=== PATIENT | female | born 1935 | race Caucasian/White ===

== ENCOUNTER → 2016-08-31 | Outpatient (CLI) | payer MEDICARE ==
[2016-08-31 11:58] LABS: Anion Gap 11 mmol/L; Blood Urea Nitrogen 9 mg/dL (7-17); Carbon Dioxide 27 mmol/L (22-30); Chloride 99 mmol/L (98-107); Non-African American GFR(MDRD) >60 (>60 ml/min/1.73 sqM); Potassium 4.4 mmol/L (3.5-5.1); Sodium 137 mmol/L (137-145)
== END | disposition home or self-care (01) ==
LOC: LABWHC1 11:05
PROVIDERS: ATTEND Psychiatry & Neurology Neurology
DX: D49.6 Neoplasm of unspecified behavior of brain (principal); G50.0 Trigeminal neuralgia
CPT/HCPCS: 36415; 80051; 80183; 82565; 84520

== ENCOUNTER → 2016-09-01 | Outpatient (CLI) | payer MEDICARE ==
--- NOTE | 2016-09-01 17:10 | MR ---
MRI brain with and without contrast HISTORY: Memory loss, forgetfulness, unstable gait Multiplanar multisequence and postcontrast images through the brain following 13 cc MultiHance IV. Correlation brain CT 26 January 2013 There is no restricted diffusion. There is no hemorrhage or hydrocephalus. The corpus callosum, pitui tary, cervical medullary junction, cerebellopontine angles are normal. No abnormal enhancement follow ing contrast administration. The periventricular white matter, zi show confluent and scattered area s of hyperintensity on inversion recovery and T2-weighted sequences. There is normal appearance to th e orbits. Cortical atrophy is likely age-related. Normal vascular flow voids and enhancement. IMPRESSION: Age-related changes of atrophy and probable chronic small vessel ischemia.
== END | disposition home or self-care (01) ==
LOC: RADMRIMAIN 14:38
PROVIDERS: ATTEND Psychiatry & Neurology Neurology
DX: G50.0 Trigeminal neuralgia (principal)
CPT/HCPCS: 70553; A9577

== ENCOUNTER 2018-01-08 09:20 | Inpatient (IN) | payer MEDICARE ==
--- NOTE | 2018-01-08 12:40 | CT ---
EXAMINATION TYPE: CODE STROKE: CTA head neck DATE OF EXAM: 01/08/2018 COMPARISON: NONE HISTORY: Neurologic symptoms CONTRAST: Isovue 370/65 and 50 ml saline. Combination Contrast CTA cervical carotids and [place] CTA cervical carotids with 3-D recons truction Contrast CTA of the cervical carotids was performed 3-D reconstruction imaging obtained at a separate workstation. Right carotid system: Mild plaque is seen of the right common carotid artery. There is mild plaque a lso noted at the carotid bulb and proximal ICA. No significant diameter reduction. ECA is patent. Right vertebral artery appears unremarkable. Left carotid system: Mild plaque is seen of the left common carotid artery. There is mild plaque als o noted at the carotid bulb and proximal ICA. No significant diameter reduction. ECA is patent. Lef t vertebral artery appears unremarkable. IMPRESSION: 1. No significant diameter reduction to account for the patient's symptoms. CTA [place] with 3-D reconstruction Contrast CTA of the [place] was performed 3-D reconstruction imaging obtained at a separate workstation. Vertebrobasilar system as well as intracranial portions of the internal carotid arteries and their ma trudy tributaries are patent. I do not see evidence for sizable aneurysm or vascular malformation. Pl ease note MRI provides greater sensitivity and specificity. Visualized brain appears grossly unremar kable. IMPRESSION: 1. No significant abnormality.
--- NOTE | 2018-01-08 12:41 | CT ---
EXAMINATION TYPE: CT brain wo con DATE OF EXAM: 01/08/2018 COMPARISON: NONE HISTORY: Pain, neurologic symptoms Unenhanced CT of the brain was performed. The ventricles, basal cisterns and sulci overlying the cerebral convexities demonstrate moderate enla rgement. There is no evidence for intracranial hemorrhage or sulcal effacement. There is decreased attenuation about the periventricular white matter and deep white matter of both c erebral hemispheres, compatible with chronic small vessel ischemia. Differential diagnosis does inclu de demyelination. No mass effects are seen.No midline shift. Osseous calvarium is intact. If symptoms persist consider MRI. IMPRESSION: 1. Age related atrophic and chronic small vessel ischemic change without acute intracranial process s een at this time.
--- NOTE | 2018-01-08 12:43 | XR ---
EXAMINATION TYPE: XR chest 2V DATE OF EXAM: 01/08/2018 CLINICAL HISTORY: Numbness and tingling and weakness left chest and body. TECHNIQUE: Frontal and lateral views of the chest are obtained. COMPARISON: Chest x-ray October 22, 2014 FINDINGS: Diminished inspiration is seen on current study. There is chronic parenchymal change withou t suspicious new focal air space opacity, pleural effusion, or pneumothorax seen. The cardiac silhou ette size is mildly enlarged on current study. Some multilevel spurring in thoracic spine is redemons trated. IMPRESSION: Chronic changes and mild cardiomegaly with diminished inspiration but no suspicious acute pulmonary process.
[2018-01-08 13:41] LABS: Appearance,Urine Clear (Clear); Bilirubin,Urine Negative (Negative); Blood,Urine Negative (Negative); Color,Urine Colorless; Glucose,Urine (UA) Negative (Negative); Ketones,Urine Negative (Negative); Leukocyte Esterase,Urine Negative (Negative); Nitrite,Urine Negative (Negative); Protein,Urine Negative (Negative); Specific Gravity,Urine 1.005 (1.001-1.035); Urobilinogen,Urine <2.0 mg/dL (<2.0)
[2018-01-08 13:45] LABS: Partial Thromboplastin Time 22.9 sec (22.0-30.0); Prothrombin Time 9.6 sec (9.0-12.0)
[2018-01-08 13:58] LABS: Basophils % (A) 1 %; Eosinophils # (A) 0.1 k/uL (0-0.7); Eosinophils % (A) 2 %; HCT 39.3 % (34.0-46.0); HGB 13.2 gm/dL (11.4-16.0); Lymphocytes # (A) 0.9 k/uL (1.0-4.8); Lymphocytes % (A) 15 %; MCH 29.1 pg (25.0-35.0); MCHC 33.5 g/dL (31.0-37.0); MCV 86.6 fL (80.0-100.0); Mean Platelet Volume 6.5; Monocytes # (A) 0.3 k/uL (0-1.0); Monocytes % (A) 5 %; Neutrophils # (A) 4.5 k/uL (1.3-7.7); Neutrophils % (A) 76 %; Platelet Count 279 k/uL (150-450); RBC 4.54 m/uL (3.80-5.40); RDW 13.2 % (11.5-15.5); WBC 5.9 k/uL (3.8-10.6)
[2018-01-08 15:03] LABS: ALT 28 U/L (9-52); AST 20 U/L (14-36); Albumin 4.3 g/dL (3.5-5.0); Alkaline Phosphatase 95 U/L (38-126); Anion Gap 13 mmol/L; Blood Urea Nitrogen 8 mg/dL (7-17); Calcium 9.3 mg/dL (8.4-10.2); Carbon Dioxide 24 mmol/L (22-30); Chloride 101 mmol/L (98-107); Glucose 97 mg/dL (74-99); Magnesium 2.1 mg/dL (1.6-2.3); Potassium 4.2 mmol/L (3.5-5.1); Sodium 138 mmol/L (137-145); Total Bilirubin 0.3 mg/dL (0.2-1.3); Total Protein 7.7 g/dL (6.3-8.2)
[2018-01-08 15:07] LABS: Creatine Kinase 51 U/L (30-135); Creatine Kinase MB 0.5 ng/mL (0.0-2.4); Troponin I <0.012 ng/mL (0.000-0.034)
[2018-01-08] MEDS ORDERED: MECLIZINE 25 MG TAB PO PRN (17:03)
[2018-01-08] MEDS ORDERED: DOCUSATE 100 MG CAP PO PRN (17:09)
[2018-01-08] MEDS: ASPIRIN 81 MG PO SCH (17:49)
[2018-01-08] MEDS: ACETAMINOPHEN TAB 325 MG TAB PO PRN (17:49)
[2018-01-08] MEDS: PARoxetine 20 MG TAB PO SCH (17:49)
[2018-01-08] MEDS: amLODIPine 5 MG TAB PO SCH (17:50)
[2018-01-08] MEDS: OXcarbazepine 300 MG TAB PO SCH ×2 (17:50→21:38)
[2018-01-08] MEDS ORDERED: ONDANSETRON 4 MG/2 ML VIAL IVP PRN (18:40)
[2018-01-08] MEDS ORDERED: MELATONIN 3 MG TABLET PO PRN (21:14)
[2018-01-08] MEDS ORDERED: NALOXONE 0.4 MG/ML 1 ML VIAL IV PRN (21:14)
[2018-01-08] MEDS ORDERED: ALPRAZolam 0.25 MG TAB PO PRN (21:14)
[2018-01-08] MEDS: MEMANTINE 10 MG TAB PO SCH (21:38)
--- NOTE | 2018-01-08 22:14 | HP ---
HISTORY AND PHYSICAL CHIEF COMPLAINTS: Weakness of the left side as well as fall. HISTORY OF PRESENT ILLNESS: This 82-year-old with a past medical history of asthma, GERD, hypertension, hyperlipidemia, history of thyroid, trigeminal neuralgia being followed by Dr. Ema Schneider in the outpatient setting apparently was living with the . That night the patient to the bathroom and the patient had weakness of the left side and the patient fell. Patient taken to [facility]. CT scan of the brain and as well as CTA did not show acute abnormality. The weakness was also improving. Currently there is only minimal weakness of the left lower limb. There is no history of fever, rigors. No history of headache, loss of consciousness or seizures. PAST MEDICAL HISTORY: Asthma, GERD, hypertension, hyperlipidemia, history of hypothyroid, trigeminal neuralgia with radiofrequency ablation. MEDICATIONS: 1. Norvasc 5 mg p.o. daily. 2. Paxil 20 mg b.i.d. 3. Tirosint 75 mcg p.o. daily. 4. Namenda 10 mg p.o. b.i.d. 5. Antivert 25 mg b.i.d. 6. Citrucel 500 mg p.o. daily. 7. Aspirin 81 mg p.o. daily. 8. Biotin 5 mg p.o. daily. 9. Oxtellar XR 10 mg p.o. daily. ALLERGIES: PENICILLIN AND SULFA. FAMILY HISTORY: History of cancer, MS in the family. SOCIAL HISTORY: There is previous history of smoking. No history of current smoking or alcohol intake. REVIEW OF SYSTEMS: ENT: Diminished vision. Diminished hearing. Cardiovascular: No angina. No palpitations. RESPIRATORY: As mentioned earlier. GI: As mentioned. : No dysuria. NERVOUS SYSTEM: No numbness or weakness. ALLERGY/IMMUNOLOGY: No asthma or hayfever. MUSCULOSKELETAL: As mentioned earlier. HEMATOLOGY/ONCOLOGY: No history of anemia. ENDOCRINE: No history of diabetes or hypothyroidism. CONSTITUTIONAL: As mentioned earlier. DERMATOLOGY: Negative. RHEUMATOLOGY: Negative. PSYCHIATRY: As mentioned earlier. PHYSICAL EXAMINATION: Alert and oriented times three. Pulse is 82, blood pressure 174/60, respiratory rate 16, temperature normal. Pulse ox 98% on room air. HEENT: Conjunctivae normal. Oral mucosa moist. NECK is no jugular venous distention. No carotid bruit. No lymph node enlargement. CARDIOVASCULAR: S1, S2 muffled. RESPIRATORY: Breath sounds diminished in the bases. A few scattered rhonchi. No crackles. ABDOMEN: Soft, nontender. No mass palpable. Legs no edema and no swelling. CENTRAL NERVOUS SYSTEM: Facial deviation on the left side and minimal weakness, left, more weakness on the left lower limb also grade 3. Upper limb is grade 4+. No sensory abnormalities. Gait not tested. LYMPHATICS: No lymph nodes palpable in the neck, axillae or groin. JOINTS: No active deforming arthropathy. LAB STUDIES: CBC, BMP within normal limits. INR is normal. CT scan noted. ASSESSMENT: 1. Acute weakness of the left side possibly right hemispheric cerebrovascular accident and acute stroke. 2. Asthma. 3. History of gastroesophageal reflux disease. 4. Hypertension. 5. Hyperlipidemia. 6. History of trigeminal neurology. 7. History of bowel obstruction. 8. History of breast surgery. 9. History of exploratory laparotomy. 10.History of anxiety. RECOMMENDATIONS AND DISCUSSION: In this 82-year-old woman who presented with multiple complex medical issues, we will monitor the patient closely, continue the current medications, management and symptomatic treatment. We will initiate neuro checks. Otherwise, at this time, I will recommend antiplatelet agents. DVT prophylaxis. Resume the home medications. Guarded prognosis because of multiple complex medical problems. Further recommendations to follow. A copy forwarded to Dr. Ema Schneider who is the primary care physician. MMJOHN / GUERLINE: [id number] /
[2018-01-08] MEDS: SODIUM CHLORIDE 0.9% 1,000 ML IV SCH (23:10)
[2018-01-09 03:31] LABS: Glucose,Whole Blood 107 mg/dL (75-99)
[2018-01-09 06:23] LABS: Basophils % (A) 0 %; Eosinophils # (A) 0.1 k/uL (0-0.7); Eosinophils % (A) 2 %; HCT 38.1 % (34.0-46.0); HGB 12.4 gm/dL (11.4-16.0); Lymphocytes # (A) 1.5 k/uL (1.0-4.8); Lymphocytes % (A) 23 %; MCH 28.2 pg (25.0-35.0); MCHC 32.6 g/dL (31.0-37.0); MCV 86.7 fL (80.0-100.0); Mean Platelet Volume 6.5; Monocytes # (A) 0.5 k/uL (0-1.0); Monocytes % (A) 7 %; Neutrophils # (A) 4.2 k/uL (1.3-7.7); Neutrophils % (A) 65 %; Platelet Count 286 k/uL (150-450); RBC 4.39 m/uL (3.80-5.40); RDW 13.6 % (11.5-15.5); WBC 6.5 k/uL (3.8-10.6)
[2018-01-09] MEDS: PANTOPRAZOLE 40 MG TABLET PO SCH (06:35)
[2018-01-09] MEDS: LEVOTHYROXINE 75 MCG TAB PO SCH (06:35)
[2018-01-09 06:38] LABS: Anion Gap 11 mmol/L; Blood Urea Nitrogen 8 mg/dL (7-17); Calcium 9.4 mg/dL (8.4-10.2); Carbon Dioxide 25 mmol/L (22-30); Chloride 99 mmol/L (98-107); Glucose 89 mg/dL (74-99); Potassium 3.8 mmol/L (3.5-5.1); Sodium 135 mmol/L (137-145)
[2018-01-09] MEDS: traMADol 50 MG TAB PO PRN ×2 (06:43→15:20)
[2018-01-09] MEDS: amLODIPine 5 MG TAB PO SCH (08:59)
[2018-01-09] MEDS: ASPIRIN 81 MG PO SCH (08:59)
[2018-01-09] MEDS: HEPARIN SODIUM,PORCINE 5,000 UNIT/ML 1 ML VIAL SQ SCH ×2 (08:59→20:18)
[2018-01-09] MEDS: PARoxetine 20 MG TAB PO SCH (09:00)
[2018-01-09] MEDS: MEMANTINE 10 MG TAB PO SCH ×2 (09:00→20:17)
[2018-01-09] MEDS: OXcarbazepine 300 MG TAB PO SCH ×2 (09:00→20:17)
[2018-01-09] MEDS ORDERED: LEVOTHYROXINE SODIUM 75 MCG PO SCH (09:00)
[2018-01-09] MEDS: BIOTIN 5 MG PO SCH (09:05)
[2018-01-09] MEDS: PSYLLIUM HUSK 100% 6 GM PACKET PO SCH (09:06)
--- NOTE | 2018-01-09 12:24 | P.PN ---
Subjective 82-year-old pleasant female admitted for weakness in the left side of the body with very minimal facial involvement. Patient appears to have cerebrovascular accident involving the right internal capsule. Patient will need an MRI, neurology will evaluate the patient and let them decide about the MRI. Patient uses aspirin at home may need to be discharged on Plavix. I'm ordering an echocardiogram, we'll also consult Dr. Mcintosh for possibility of placement to inpatient rehabilitation. Patient will be started on statin as well lighted panel will be obtained for tomorrow. Patient still has weakness and strength of the road and 3/5 in the left arm and around 2-3/5 in the left leg with tingling and numbness in both left arm and left leg. Which as per the patient is an improvement since that hospitalization Constitutional: Denied any fatigue denied any fever. Cardio vascular: denied any chest pain, palpitations Gastrointestinal denied any nausea vomiting Pulmonary: Denied any shortness of breath cough Neurologic as mentioned above Objective - Vital Signs Vital signs: Vital Signs Temp 97.1 F L 01/09/18 08:00 Pulse 88 01/09/18 08:00 Resp 16 01/09/18 08:00 BP 154/69 01/09/18 08:00 Pulse Ox 93 L 01/09/18 08:00 Intake & Output 01/08/18 01/09/18 01/09/18 18:59 06:59 18:59 Intake Total 160 240 Output Total 500 Balance -340 240 Weight 70 kg Intake: Intake, IV Titration 160 Amount Sodium Chloride 0.9% 1, 160 000 ml @ 20 mls/hr IV . Q24H [facility] Rx#:[id number] Oral 240 Output: Urine 500 Other: Voiding Method Bedpan # Voids 1 - Exam PHYSICAL EXAMINATION: GENERAL: The patient is alert and oriented x3, not in any acute distress. Well developed, well nourished. HEENT: Pupils are round and equally reacting to light. EOMI. No scleral icterus. No conjunctival pallor. Normocephalic, atraumatic. No pharyngeal erythema. No thyromegaly. CARDIOVASCULAR: S1 and S2 present. No murmurs, rubs, or gallops. PULMONARY: Chest is clear to auscultation, no wheezing or crackles. ABDOMEN: Soft, nontender, nondistended, normoactive bowel sounds. No palpable organomegaly. MUSCULOSKELETAL: No joint swelling or deformity. EXTREMITIES: No cyanosis, clubbing, or pedal edema. NEUROLOGICAL: Focal weakness as described in the interval history SKIN: No rashes. - Labs CBC & Chem 7: 01/09/18 05:39 01/09/18 05:39 Labs: Abnormal Lab Results - Last 24 Hours (Table) 01/08/18 01/08/18 01/09/18 Range/Units 09:34 09:40 05:39 Lymphocytes # 0.9 L (1.0-4.8) k/uL Sodium 135 L (137-145) mmol/L Creatinine 0.50 L (0.52-1.04) mg/dL POC Glucose (mg/dL) 107 H (75-99) mg/dL Assessment and Plan Plan: -Possible cerebral vascular accident involving the right cerebral hemisphere most probably in the genital of the right [id number], which is middle cerebral artery territory. Further management as mentioned in 12 history -Asthma without any acute exacerbation -Hypertension -Hyperlipidemia -Anxiety disorder For above-mentioned chronic medical problems patient will be resumed and continued on appropriate home medications.
--- NOTE | 2018-01-09 12:37 | ECHOF ---
Referral Reason:CVA MEASUREMENTS -------- HEIGHT: 147.3 cm WEIGHT: 69.9 kg BP: 154/69 RVIDd: 2.4 cm (< 3.3) IVSd: 1.0 cm (0.6 - 1.1) LVIDd: 3.8 cm (3.9 - 5.3) LVPWd: 1.1 cm (0.6 - 1.1) IVSs: 1.5 cm LVIDs: 2.8 cm LVPWs: 1.5 cm LAESV Index (A-L): 30.51 ml/m Ao Diam: 3.1 cm (2.0 - 3.7) AV Cusp: 1.9 cm (1.5 - 2.6) LA Diam: 3.3 cm (2.7 - 3.8) MV E Alvaro: 0.75 m/s MV DecT: 311 ms MV A Alvaro: 1.26 m/s MV E/A Ratio: 0.60 AR PHT: 488 ms RAP: 5.00 mmHg RVSP: 31.03 mmHg FINDINGS -------- Sinus rhythm. This was a technically adequate study. The left ventricular size is normal. Left ventricular wall thickness is normal. Overall left vent ricular systolic function is normal with, an EF between 55 - 60 %. The right ventricle is normal in size and function. LA is midly dilated 29-33ml/m2. The right atrium is normal in size. Aortic valve is trileaflet and is mildly thickened. There is [id number] aortic regurgitation. There is no evidence of aortic stenosis. The mitral valve leaflets are mildly thickened. Mild mitral annular calcification present. Mild m itral regurgitation is present. Trace tricuspid regurgitation present. Right ventricular systolic pressure is normal at < 35 mmHg. There is no evidence of pulmonary hypertension. Trace/mild (physiologic) pulmonic regurgitation. The aortic root size is normal. Normal inferior vena cava with normal inspiratory collapse consistent with estimated right atrial pre ssure of 5 mmHg. There is no pericardial effusion. CONCLUSIONS -------- 1. Sinus rhythm. 2. This was a technically adequate study. 3. The left ventricular size is normal. 4. Left ventricular wall thickness is normal. 5. Overall left ventricular systolic function is normal with, an EF between 55 - 60 %. 6. LA is midly dilated 29-33ml/m2. 7. Aortic valve is trileaflet and is mildly thickened. 8. There is [id number]-[id number] aortic regurgitation. 9. The mitral valve leaflets are mildly thickened. 10. Mild mitral annular calcification present. 11. Mild mitral regurgitation is present. 12. Trace tricuspid regurgitation present. 13. Right ventricular systolic pressure is normal at < 35 mmHg. 14. There is no evidence of pulmonary hypertension. 15. Trace/mild (physiologic) pulmonic regurgitation. 16. The aortic root size is normal. 17. There is no pericardial effusion. [employer] OPERATOR: Logan Hubbard RDCS
--- NOTE | 2018-01-09 16:45 | P.CONS ---
History of Present Illness - Chief Complaint Gait disturbance, left hemiparesthesias - History of Present Illness I had the opportunity to see patient for inpatient rehab consultation with regard to gait disturbance. He was admitted to [facility] overnight with acute onset left-sided weakness and left facial numbness. Chest x-ray chronic change and mild cardiomegaly. Cardiac echo with mild to moderate aortic and mild mitral regurg. Angio CT negative. Head CT with degenerative change. PT reports moderate assistance for bed mobility minimal assistance of 2 person for transfers and standing. OT reports moderate assistance for upper dressing and maximal assistance for lower dressing and bathing. Total assistance for toileting. Moderate assistance to person for functional mobility. I have added speech therapy. Previous functional history as elicited from patient: 82-year-old right-handed white female who is and lives in one floor home with . Describes independent with cooking, laundry, standing shower. Uses a standard cane around the house in a 4 wheeled walker outside. Does not drive and never did. Dr. Wyatt is regular doctor. Doesn't smoke or drink. Family history cardiac disease in father and mother with diabetes and cancer. Review of Systems Review of systems: ENT: Denies sneezes or discharge. Eyes: Denies discharge or photophobia. Cardiac: Denies chest pain or palpitation. Pulmonary: Denies cough or shortness of breath. Breast: Denies discharge or lumps. Gastrointestinal: Denies nausea, emesis, constipation, diarrhea. Genitourinary: Denies discharge or frequency. Musculoskeletal: Denies muscle or bone aches. Neurologic: Left arm weakness more so than leg. Left facial numbness. Endocrine: Denies shakes or sweats. Oncology: Denies cancers. Dermatologic: Denies rash, itching, pruritus. ALLERGY/immunology: Denies sneezes, rashes. Past Medical History Past Medical History: Asthma, Eye Disorder, GERD/Reflux, Hyperlipidemia, Hypertension, Neurologic Disorder, Thyroid Disorder Additional Past Medical History / Comment(s): TRIGEMINAL NEURALGIA, MIGRAINES, VERTIGO, PAST SMALL BOWEL OBSTRUCTIONS, DIVERTICULAR DISEASE, HYPOTHYROID, BILATERAL EYE ASTIGMATISM, UTIS, ANEMIA, SINUS PROBLEMS History of Any Multi-Drug Resistant Organisms: None Reported Past Surgical History: Bowel Resection, Breast Surgery, Hysterectomy, Tubal Ligation Additional Past Surgical History / Comment(s): EXPLORATORY LAP/LYSIS OF ADHESIONS-2 BOWEL SURGERIES, COLONOSCOPY, BILATERAL CATARACT REMOVAL/LENS IMPLANTS, BRAIN-GAMMA RAY KNIFE SURGERY AT [facility] FOR TRIGEMINAL NEURALGIA, SOFIE BENIGN BREAST BX Past Anesthesia/Blood Transfusion Reactions: Motion Sickness Additional Past Anesthesia/Blood Transfusion Reaction / Comm: HX OF VERTIGO. PT HAS RECEIVED BLOOD INTHE PAST WITHOUT REACTION. Smoking Status: Former smoker - Past Family History Son(s) Family Medical History: Cancer, Neurologic Disorder Additional Family Medical History / Comment(s): ms Father Family Medical History: Hypertension, Myocardial Infarction ([place]) Additional Family Medical History / Comment(s): enlarged heart Mother Family Medical History: Diabetes Mellitus Additional Family Medical History / Comment(s): MOTHER LIVED TO BE 98YRS OLD. Sister(s) Family Medical History: CVA/TIA Brother(s) Additional Family Medical History / Comment(s): glaucoma Medications and Allergies Home Medications Medication Instructions Recorded Confirmed Type Aspirin 81 mg PO DAILY 01/08/18 01/08/18 History Biotin 5 mg PO DAILY 01/08/18 01/08/18 History Citrucel Tab 500 mg PO DAILY 01/08/18 01/08/18 History Levothyroxine Sodium [Tirosint] 75 mcg PO DAILY 01/08/18 01/08/18 History Meclizine [Antivert] 25 mg PO DAILY 01/08/18 01/08/18 History Memantine [Namenda] 10 mg PO BID 01/08/18 01/08/18 History OXcarbazepine [Oxtellar Xr] 300 mg PO DAILY 01/08/18 01/08/18 History PARoxetine [Paxil] 20 mg PO DAILY 01/08/18 01/08/18 History amLODIPine [Norvasc] 5 mg PO DAILY 01/08/18 01/08/18 History Allergies Allergy/AdvReac Type Severity Reaction Status Date / Time Penicillins Allergy Rash/Hives Verified 06/21/16 12:03 Sulfa (Sulfonamide Allergy Itching Verified 06/21/16 12:03 Antibiotics) Physical Exam Vitals: Vital Signs Temp Pulse Pulse Resp BP BP Pulse Ox 01/09/18 08:00 97.1 F L 88 16 154/69 93 L 01/09/18 03:46 85 16 01/09/18 03:45 98.0 F 85 16 174/77 99 01/09/18 00:00 97.9 F 82 16 154/78 97 01/08/18 21:30 97.6 F 82 18 161/86 94 L 01/08/18 20:45 82 16 174/67 96 Intake and Output 01/09/18 01/09/18 01/09/18 06:59 14:59 22:59 Intake Total 160 358 Output Total 200 300 Balance -40 58 Intake: Intake, IV Titration 160 Amount Sodium Chloride 0.9% 1, 160 000 ml @ 20 mls/hr IV . Q24H [facility] Rx#:[id number] Oral 358 Output: Urine 200 300 Other: Voiding Method Bedpan # Voids 1 1 # Bowel Movements 0 Weight 70 kg Skin: Atrophic, intact. General: Medium build and comfortable appearance. Head: Normocephalic, atraumatic. Eyes: Symmetric. Pupils equal round. Ears: Symmetric. Hearing within normal limits. Mouth: Clear. Neck: Supple. Carotid without bruit. Cardiac: Regular rate and rhythm. Lungs: Clear anteriorly and posteriorly. Abdomen: Soft active nontender. Extremities: Normal tone. Neurological: Mental status: Alert, cooperative, pleasant. Cranial nerves: Symmetric facial tone and trapezius. Motor: Normal strength and isolation right side. Left leg moves with elements of isolation throughout. Left arm in flexion synergy. Sensation: Intact throughout. DTRs: Symmetric and equal throughout. Mobility: Sits with assistance. Results CBC & Chem 7: 01/09/18 05:39 01/09/18 05:39 Labs: Abnormal Lab Results - Last 24 Hours (Table) 01/08/18 01/09/18 Range/Units 09:34 05:39 Sodium 135 L (137-145) mmol/L Creatinine 0.50 L (0.52-1.04) mg/dL POC Glucose (mg/dL) 107 H (75-99) mg/dL Chest x-ray: report reviewed (Chronic change and mild cardiomegaly.) CT Scan - head: report reviewed (Age related change only. Angio CT negative.) Assessment and Plan (1) CVA (cerebral vascular accident) Current Visit: Yes Status: Acute Code(s): I63.9 - CEREBRAL INFARCTION, UNSPECIFIED SNOMED Code(s): 673763275 Plan: Impression: 1. Gait disturbance. 2. Right sided cerebral stroke with result in left hemiparesthesias. 3. Hypertension. 4. Dyslipidemia. 5. Asthma. 6. Thyroid disorder. Comments and plan: At this time PT and OT are ongoing and safety concerns noted. I have added speech therapy. Note patient just admitted. I discussed possible inpatient rehab with patient and multiple family members including . Seem agreeable, if necessary. Have discussed rehab unit currently full would anticipate female beds by Saturday.
--- NOTE | 2018-01-09 19:07 | CONS ---
CONSULTATION DATE OF CONSULTATION: 01/09/2018 CHIEF COMPLAINT: Stroke. HISTORY OF PRESENT ILLNESS: Mrs. Sanchez is a pleasant 82-year-old female who is being evaluated by the neurology service per the request of Dr. Richardson for a stroke. The patient was brought into [facility] Emergency Room after she had a sudden onset of left-sided weakness and some slurred speech. The patient states that she remembers being unable to move her left leg or left arm. Her family also noticed facial drooping on the left side. In the emergency room, a CT scan of the brain was done which showed generalized atrophy and small-vessel ischemic changes. A CT angiogram of the brain and neck were done which were normal. Her CBC, comprehensive metabolic profile, urinalysis and cardiac enzymes were reviewed and were all normal. At the time of my evaluation, she is lying in her bed and appears to be in no acute distress. She reports some improvements in her symptoms but denies resolution. She states that she can now lift her left lower extremity off the bed and is able to slightly move her left arm. She could not do this when she first arrived. She was started on aspirin on this admission. She states that she does take aspirin at home but sometimes forgets to take it. She denies any swallowing difficulties. PAST MEDICAL HISTORY: 1. Asthma. 2. Gastroesophageal reflux disease. 3. Hypertension. 4. Dyslipidemia. 5. Hypothyroidism. 6. Trigeminal neuralgia. SOCIAL HISTORY: The patient is a former smoker. She denies any alcohol or drug use. FAMILY HISTORY: Positive for cancer and multiple sclerosis. HOME MEDICATIONS: Reviewed in the chart. ALLERGIES: PENICILLIN and SULFA DRUGS. REVIEW OF SYSTEMS: CONSTITUTIONAL: Negative. EYES: Negative. ENT: Positive for chronic diminished hearing. CARDIOVASCULAR: Negative. RESPIRATORY: Positive for occasional shortness of breath. NEUROLOGICAL: As mentioned above. GASTROINTESTINAL: Positive for occasional heartburn. GENITOURINARY: Negative. PSYCHIATRIC: Negative. ENDOCRINE: Positive for hypothyroidism. MUSCULOSKELETAL: Positive for occasional joint pain. DERMATOLOGICAL: Negative. PHYSICAL EXAMINATION: Vital signs show a temperature of 97.1, pulse 88, respirations 16, blood pressure 154/69. GENERAL APPEARANCE: The patient is a well-developed, elderly female who appears to be in no acute distress. HEENT: Normocephalic, atraumatic. Mild left facial drooping is seen. Extraocular muscles are intact. NECK: Supple with no masses felt. CARDIOVASCULAR: Regular rate and rhythm. ABDOMEN: Nontender, nondistended. Extremities showed no edema or clubbing. NEUROLOGICAL EXAMINATION: The patient is awake and oriented x3. Speech is slightly dysarthric. Language testing showed slightly diminished naming, but her comprehension, repetition and fluency are normal. Strength is 4/5 in the left lower extremity, 2+/5 in the left upper extremity, and 5/5 on the right side. Sensory exam was normal to light touch in all 4 extremities. Cranial nerve testing showed mild left facial drooping. Significant dysdiadochokinesia is seen on the left compared to the right. IMPRESSION: 1. Acute ischemic stroke, right middle cerebral artery distribution. 2. Left hemiparesis. 3. Mild dysarthria. 4. Hypertension. RECOMMENDATION: The patient does appear to have suffered an acute ischemic stroke, as mentioned above. The patient was on aspirin at home, although she reports that she has not been extremely compliant with taking that daily, as she sometimes forgets. I will start her on Plavix 75 mg daily and will discontinue aspirin. I will order an MRI of the brain along with a fasting lipid panel, EEG and serum homocystine level. Her CT angiogram of the neck showed no evidence of any significant blockage or stenosis. Physical Therapy, Occupational Therapy and Speech Therapy have been consulted. Continue Protonix for GI prophylaxis and heparin for DVT prophylaxis. The patient will need inpatient rehab after discharge. Continue neuro checks and IV hydration. I will continue to follow with you. Further recommendations to follow. Thank you for allowing me to participate in the care of your patient. If you have any questions, please feel free to contact me. MMODL / IJN: [id number] /
[2018-01-09] MEDS: ATORVASTATIN 40 MG TAB PO SCH (20:18)
[2018-01-09] MEDS: CLOPIDOGREL 75 MG TAB PO SCH (20:18)
[2018-01-09] MEDS: SODIUM CHLORIDE 0.9% 1,000 ML IV SCH (20:28)
--- NOTE | 2018-01-09 21:07 | MR ---
EXAMINATION TYPE: MR brain wo con DATE OF EXAM: 01/09/2018 COMPARISON: CT brain from yesterday. MRI brain from September 01, 2016. HISTORY: CVA per order. Admitted for acute onset neuro deficits or trouble speaking yesterday. TECHNIQUE: Multiplanar, multisequence imaging of the brain and brainstem is performed without IV cont rast. FINDINGS: Diffusion weighted images demonstrate area measuring roughly 13 x 12 mm posterior right marks radiat a near frontoparietal junction adjacent to right lateral ventricle axial image 160 series 305 with in creased signal on diffusion-weighted images and diminished signal on ADC mapping that shows T1 hypoin tensity and T2 hyperintensity new from prior MRI consistent with area of evolving acute infarct that was isodense on CT one day earlier. There is no worrisome extra-axial fluid collection. There is background mild diffuse ventricular and sulcal prominence. There are focal and confluent areas of T2 hyperintensity seen throughout the deep and periventricular white matter including at level of zi. Lesions are nonspecific in appearance an d distribution, but most likely on basis of product of chronic small vessel ischemic change in patien t of this age. Midline structures demonstrate normal morphology. The craniocervical junction appears within normal limits. Normal vascular flow voids are present. The visualized sinuses are clear and the globes are i ntact. IMPRESSION: 1. Area of evolving acute infarct posterior right marks radiata near frontoparietal junction as deta iled above. 2. There is background mild diffuse cerebral atrophy and moderate to severe chronic small vessel isch emic change redemonstrated.
[2018-01-10] MEDS: traMADol 50 MG TAB PO PRN (03:58)
[2018-01-10 06:56] LABS: Basophils % (A) 0 %; Eosinophils # (A) 0.2 k/uL (0-0.7); Eosinophils % (A) 3 %; HCT 38.9 % (34.0-46.0); HGB 12.9 gm/dL (11.4-16.0); Lymphocytes # (A) 1.2 k/uL (1.0-4.8); Lymphocytes % (A) 19 %; MCHC 33.1 g/dL (31.0-37.0); MCV 87.6 fL (80.0-100.0); Mean Platelet Volume 6.4; Monocytes # (A) 0.4 k/uL (0-1.0); Monocytes % (A) 7 %; Neutrophils # (A) 4.6 k/uL (1.3-7.7); Neutrophils % (A) 70 %; Platelet Count 266 k/uL (150-450); RBC 4.44 m/uL (3.80-5.40); RDW 13.7 % (11.5-15.5); WBC 6.5 k/uL (3.8-10.6)
[2018-01-10] MEDS: PANTOPRAZOLE 40 MG TABLET PO SCH (06:56)
[2018-01-10] MEDS: LEVOTHYROXINE 75 MCG TAB PO SCH (06:56)
[2018-01-10 07:11] LABS: Anion Gap 11 mmol/L; Blood Urea Nitrogen 10 mg/dL (7-17); Calcium 9.3 mg/dL (8.4-10.2); Carbon Dioxide 28 mmol/L (22-30); Chloride 94 mmol/L (98-107); Cholesterol 179 mg/dL (<200); Glucose 99 mg/dL (74-99); HDL Cholesterol 48 mg/dL (40-60); LDL Cholesterol,Calculated 100 mg/dL (0-99); Potassium 4.2 mmol/L (3.5-5.1); Sodium 133 mmol/L (137-145); Triglycerides 154 mg/dL (<150)
[2018-01-10] MEDS: CLOPIDOGREL 75 MG TAB PO SCH (10:41)
[2018-01-10] MEDS: HEPARIN SODIUM,PORCINE 5,000 UNIT/ML 1 ML VIAL SQ SCH ×2 (10:41→21:03)
[2018-01-10] MEDS: amLODIPine 5 MG TAB PO SCH (10:41)
[2018-01-10] MEDS: OXcarbazepine 300 MG TAB PO SCH ×2 (10:41→21:03)
[2018-01-10] MEDS: PARoxetine 20 MG TAB PO SCH (10:41)
[2018-01-10] MEDS: MEMANTINE 10 MG TAB PO SCH ×2 (10:41→21:03)
[2018-01-10] MEDS: PSYLLIUM HUSK 100% 6 GM PACKET PO SCH (10:46)
--- NOTE | 2018-01-10 11:33 | EEG ---
ELECTROENCEPHALOGRAM REPORT DATE OF SERVICE: 01/10/2018 REASON FOR TESTING: Stroke. DESCRIPTION OF THE PROCEDURE: This EEG was performed using a 21 channel digital electroencephalograph, following international 10-20 system. DESCRIPTION OF THE RECORDING: From the beginning of the tracing, with patient's eyes closed, the background rhythm was mostly consisting of 8 Hz alpha frequency in the posterior occipital leads. No obvious asymmetry is seen. Frequent lead artifacts and muscle artifacts are seen. Photic stimulation was performed with a minimal driving response seen. No pathological waves were elicited. More artifacts are noticed in the left frontotemporal leads. Hyperventilation was not performed. Later in the tracing, the patient does reach stage II of sleep, and occasional sleep spindles are seen. No epileptiform discharges were noticed. Her EKG lead showed a regular rate and rhythm. INTERPRETATION: This asleep and awake EEG can be considered within normal limits. There was no asymmetry seen. No epileptiform discharges were noticed. The absence of epileptiform discharges does not rule out the diagnosis of epilepsy; therefore clinical correlation is recommended. MMJOHN / IJN: [id number] /
--- NOTE | 2018-01-10 12:37 | P.PN ---
Subjective 82-year-old pleasant female admitted for weakness in the left side of the body with very minimal facial involvement. Patient appears to have cerebrovascular accident involving the right internal capsule. Patient will need an MRI, neurology will evaluate the patient and let them decide about the MRI. Patient uses aspirin at home may need to be discharged on Plavix. I'm ordering an echocardiogram, we'll also consult Dr. Mcintosh for possibility of placement to inpatient rehabilitation. Patient will be started on statin as well lighted panel will be obtained for tomorrow. Patient still has weakness and strength of the road and 3/5 in the left arm and around 2-3/5 in the left leg with tingling and numbness in both left arm and left leg. Which as per the patient is an improvement since that hospitalization 01/10/2018 Patient does have improvement in her left time weakness a little bit and had a left arm strength is around 3-4 /5 and left leg weakness remains the same. Patient was a valid by neurology, MRI was obtained which showed acute evaluating infarct in the posterior right coronary radiate the in the frontoparietal junction which explains his symptoms of weakness. All the workup including echocardiogram were done which were negative. Patient was switched to Plavix which will be continued. Patient is accepted to go to inpatient rehabilitation at [facility] but patient is awaiting for beds Constitutional: Denied any fatigue denied any fever. Cardio vascular: denied any chest pain, palpitations Gastrointestinal denied any nausea vomiting Pulmonary: Denied any shortness of breath cough Neurologic as mentioned above Objective - Vital Signs Vital signs: Vital Signs Temp 97.0 F L 01/10/18 10:58 Pulse 77 01/10/18 11:00 Resp 16 01/10/18 11:00 BP 155/81 01/10/18 10:58 Pulse Ox 97 01/10/18 10:58 Intake & Output 01/09/18 01/10/18 01/10/18 18:59 06:59 18:59 Intake Total 478 10 200 Output Total 500 200 Balance -22 -190 200 Weight 65.5 kg Intake: IV 10 Invasive Line 1 10 Oral 478 200 Output: Urine 500 200 Other: Voiding Method Bedpan Bedpan # Voids 1 1 # Bowel Movements 0 - Exam PHYSICAL EXAMINATION: GENERAL: The patient is alert and oriented x3, not in any acute distress. Well developed, well nourished. HEENT: Pupils are round and equally reacting to light. EOMI. No scleral icterus. No conjunctival pallor. Normocephalic, atraumatic. No pharyngeal erythema. No thyromegaly. CARDIOVASCULAR: S1 and S2 present. No murmurs, rubs, or gallops. PULMONARY: Chest is clear to auscultation, no wheezing or crackles. ABDOMEN: Soft, nontender, nondistended, normoactive bowel sounds. No palpable organomegaly. MUSCULOSKELETAL: No joint swelling or deformity. EXTREMITIES: No cyanosis, clubbing, or pedal edema. NEUROLOGICAL: Focal weakness as described in the interval history SKIN: No rashes. - Labs CBC & Chem 7: 01/10/18 06:01 01/10/18 06:01 Labs: Abnormal Lab Results - Last 24 Hours (Table) 01/10/18 Range/Units 06:01 Sodium 133 L (137-145) mmol/L Chloride 94 L (98-107) mmol/L Triglycerides 154 H (<150) mg/dL LDL Cholesterol, Calc 100 H (0-99) mg/dL Microbiology - Last 24 Hours (Table) 01/08/18 17:17 Blood Culture - Preliminary Blood No Growth after 24 hours Assessment and Plan Plan: -Possible cerebral vascular accident involving the right cerebral hemisphere ischemic stroke, subcortical in coronary radiate of fronto parietal cortex, which is middle cerebral artery territory. Further management as mentioned in the interval history history -Asthma without any acute exacerbation -Hypertension -Hyperlipidemia -Anxiety disorder For above-mentioned chronic medical problems patient will be resumed and continued on appropriate home medications.
[2018-01-10] MEDS: BIOTIN 5 MG PO SCH (16:22)
[2018-01-10] MEDS: ACETAMINOPHEN TAB 325 MG TAB PO PRN (17:20)
--- NOTE | 2018-01-10 17:20 | P.PN ---
Subjective Progress Note Date: 01/10/18 Patient is a pleasant 82-year-old female who is being followed by the neurology service for stroke. Patient came to [facility] after sudden onset of left-sided weakness and slurred speech. Patient reports being unable to move her left leg or her left arm. Family noticed facial drooping on the left. Patient had computed tomography scan of the brain done on admission which showed generalized atrophy and small vessel ischemic changes. CT angiogram of the brain and neck were done which were normal. Patient reports significant improvement in mobility of left side since yesterday. She denies difficulty swallowing. MRI of the brain revealed acute evolving infarct of the posterior right marks radiata near frontoparietal junction. MRI also reveals diffuse cerebral atrophy and severe chronic small vessel ischemic changes. EEG was normal. Patient's aspirin was switched to Plavix 75 mg by mouth daily. Patient was evaluated by physiatry and will go to [facility] inpatient rehab most likely on Saturday. At the time of my evaluation, patient's resting comfortably in bed and appears to be in no acute distress. Objective - Vital Signs Vital signs: Vital Signs Temp 97.7 F 01/10/18 15:00 Pulse 76 01/10/18 15:00 Resp 16 01/10/18 15:00 BP 153/81 01/10/18 15:00 Pulse Ox 97 01/10/18 15:00 Intake & Output 01/09/18 01/10/18 01/10/18 18:59 06:59 18:59 Intake Total 478 10 400 Output Total 500 200 200 Balance -22 -190 200 Weight 65.5 kg Intake: IV 10 Invasive Line 1 10 Oral 478 400 Output: Urine 500 200 200 Other: Voiding Method Bedpan Bedpan # Voids 1 1 # Bowel Movements 0 - Exam PHYSICAL EXAM: GENERAL APPEARANCE: Patient is a well-developed, female who appears to be in no acute distress. HEENT: Normocephalic, atraumatic, mild left facial asymmetry is seen. Neck is supple with no masses felt. CARDIOVASCULAR: Regular rate and rhythm. ABDOMEN: Nontender, nondistended. EXTREMITIES: Show no edema or clubbing. NEUROLOGICAL EXAM: Patient is awake, alert, and oriented 3. Speech is mildly dysarthric. Language is normal. Strength is 3/5 in the left upper extremity and 4/5 in the left lower extremity. Strength is 5/5 on the right side. Sensory exam is normal to light touch in all 4 extremities. Cranial nerve testing shows mild left facial drooping. No tremors or seizure-like activity noted. - Labs CBC & Chem 7: 01/10/18 06:01 01/10/18 06:01 Labs: Abnormal Lab Results - Last 24 Hours (Table) 01/10/18 Range/Units 06:01 Sodium 133 L (137-145) mmol/L Chloride 94 L (98-107) mmol/L Triglycerides 154 H (<150) mg/dL LDL Cholesterol, Calc 100 H (0-99) mg/dL Microbiology - Last 24 Hours (Table) 01/08/18 17:17 Blood Culture - Preliminary Blood No Growth after 24 hours Assessment and Plan Plan: Impression: 1. Acute ischemic stroke, right middle cerebral artery distribution 2. Left hemiparesis 3. Mild dysarthria 4. Hypertension Recommendation: Patient does appear to have suffered an acute ischemic stroke with left hemiparesis. Patient will continue Plavix 75 mg daily. Lipid panel showed elevated triglycerides as well as elevated LDL cholesterol. Homocystine level was within normal limits. I recommend to continue statin therapy. EEG was normal. Continue physical therapy and occupational therapy. Continue speech therapy. Continue neurological checks. I agree the patient will need inpatient rehab following discharge. I will continue to follow with you on an as-needed basis. Feel free to call with any questions or concerns. I performed an examination of the patient and discussed the management with the NUCLEAR MEDICINE SPECIALIST. I have reviewed the NUCLEAR MEDICINE SPECIALIST notes and agree with the findings and plan of care.
[2018-01-10] MEDS: SODIUM CHLORIDE 0.9% 1,000 ML IV SCH (21:03)
[2018-01-10] MEDS: ATORVASTATIN 40 MG TAB PO SCH (21:03)
[2018-01-11] MEDS: LEVOTHYROXINE 75 MCG TAB PO SCH (05:49)
[2018-01-11] MEDS: PANTOPRAZOLE 40 MG TABLET PO SCH (05:49)
[2018-01-11 06:18] LABS: Basophils % (A) 1 %; Eosinophils # (A) 0.2 k/uL (0-0.7); Eosinophils % (A) 4 %; HCT 37.8 % (34.0-46.0); HGB 12.7 gm/dL (11.4-16.0); Lymphocytes # (A) 1.4 k/uL (1.0-4.8); Lymphocytes % (A) 24 %; MCH 28.7 pg (25.0-35.0); MCHC 33.5 g/dL (31.0-37.0); MCV 85.6 fL (80.0-100.0); Mean Platelet Volume 6.6; Monocytes # (A) 0.4 k/uL (0-1.0); Monocytes % (A) 6 %; Neutrophils # (A) 3.7 k/uL (1.3-7.7); Neutrophils % (A) 64 %; Platelet Count 305 k/uL (150-450); RBC 4.41 m/uL (3.80-5.40); RDW 13.2 % (11.5-15.5); WBC 5.9 k/uL (3.8-10.6)
[2018-01-11 07:05] LABS: Anion Gap 12 mmol/L; Blood Urea Nitrogen 14 mg/dL (7-17); Calcium 9.2 mg/dL (8.4-10.2); Carbon Dioxide 27 mmol/L (22-30); Chloride 94 mmol/L (98-107); Glucose 95 mg/dL (74-99); Sodium 133 mmol/L (137-145)
[2018-01-11] MEDS: BIOTIN 5 MG PO SCH (07:39)
[2018-01-11] MEDS: OXCARBAZEPINE 300 MG PO SCH ×2 (07:39→09:36)
[2018-01-11] MEDS: OXcarbazepine 300 MG TAB PO SCH ×2 (09:22→21:17)
[2018-01-11] MEDS: CLOPIDOGREL 75 MG TAB PO SCH (09:22)
[2018-01-11] MEDS: MEMANTINE 10 MG TAB PO SCH ×2 (09:22→21:17)
[2018-01-11] MEDS: PARoxetine 20 MG TAB PO SCH (09:22)
[2018-01-11] MEDS: PSYLLIUM HUSK 100% 6 GM PACKET PO SCH (09:23)
[2018-01-11] MEDS: HEPARIN SODIUM,PORCINE 5,000 UNIT/ML 1 ML VIAL SQ SCH ×2 (09:23→21:16)
[2018-01-11] MEDS: amLODIPine 5 MG TAB PO SCH (09:23)
--- NOTE | 2018-01-11 15:16 | P.PN ---
Subjective 82-year-old pleasant female admitted for weakness in the left side of the body with very minimal facial involvement. Patient appears to have cerebrovascular accident involving the right internal capsule. Patient will need an MRI, neurology will evaluate the patient and let them decide about the MRI. Patient uses aspirin at home may need to be discharged on Plavix. I'm ordering an echocardiogram, we'll also consult Dr. Mcintosh for possibility of placement to inpatient rehabilitation. Patient will be started on statin as well lighted panel will be obtained for tomorrow. Patient still has weakness and strength of the road and 3/5 in the left arm and around 2-3/5 in the left leg with tingling and numbness in both left arm and left leg. Which as per the patient is an improvement since that hospitalization 01/10/2018 Patient does have improvement in her left time weakness a little bit and had a left arm strength is around 3-4 /5 and left leg weakness remains the same. Patient was a valid by neurology, MRI was obtained which showed acute evaluating infarct in the posterior right coronary radiate the in the frontoparietal junction which explains his symptoms of weakness. All the workup including echocardiogram were done which were negative. Patient was switched to Plavix which will be continued. Patient is accepted to go to inpatient rehabilitation at [facility] but patient is awaiting for beds 01/11/2018 No overnight events, patient is awaiting disposition to inpatient rehabilitation Constitutional: Denied any fatigue denied any fever. Cardio vascular: denied any chest pain, palpitations Gastrointestinal denied any nausea vomiting Pulmonary: Denied any shortness of breath cough Neurologic as mentioned above Objective - Vital Signs Vital signs: Vital Signs Temp 97.6 F 01/11/18 11:30 Pulse 90 01/11/18 11:30 Resp 18 01/11/18 11:30 BP 158/78 01/11/18 11:30 Pulse Ox 95 01/11/18 11:30 Intake & Output 01/10/18 01/11/18 01/11/18 18:59 06:59 18:59 Intake Total 600 240 Output Total 200 Balance 400 240 Weight 61.5 kg Intake: Oral 600 240 Output: Urine 200 Other: Voiding Method Bedside Commode Bedside Commode # Voids 2 - Exam PHYSICAL EXAMINATION: GENERAL: The patient is alert and oriented x3, not in any acute distress. Well developed, well nourished. HEENT: Pupils are round and equally reacting to light. EOMI. No scleral icterus. No conjunctival pallor. Normocephalic, atraumatic. No pharyngeal erythema. No thyromegaly. CARDIOVASCULAR: S1 and S2 present. No murmurs, rubs, or gallops. PULMONARY: Chest is clear to auscultation, no wheezing or crackles. ABDOMEN: Soft, nontender, nondistended, normoactive bowel sounds. No palpable organomegaly. MUSCULOSKELETAL: No joint swelling or deformity. EXTREMITIES: No cyanosis, clubbing, or pedal edema. NEUROLOGICAL: No focal weakness as dictated in the interval history from January 10 SKIN: No rashes. - Labs CBC & Chem 7: 01/11/18 05:33 01/11/18 05:33 Labs: Abnormal Lab Results - Last 24 Hours (Table) 01/11/18 Range/Units 05:33 Sodium 133 L (137-145) mmol/L Chloride 94 L (98-107) mmol/L Microbiology - Last 24 Hours (Table) 01/08/18 17:17 Blood Culture - Preliminary Blood No Growth after 48 hours Assessment and Plan Plan: -Possible cerebral vascular accident involving the right cerebral hemisphere ischemic stroke, subcortical in coronary radiate of fronto parietal cortex, which is middle cerebral artery territory. Further management as mentioned in the interval history history -Asthma without any acute exacerbation -Hypertension -Hyperlipidemia -Anxiety disorder For above-mentioned chronic medical problems patient will be resumed and continued on appropriate home medications.
[2018-01-11] MEDS: SODIUM CHLORIDE 0.9% 1,000 ML IV SCH (21:17)
[2018-01-11] MEDS: ATORVASTATIN 40 MG TAB PO SCH (21:17)
[2018-01-12] MEDS: PANTOPRAZOLE 40 MG TABLET PO SCH (06:12)
[2018-01-12] MEDS: LEVOTHYROXINE 75 MCG TAB PO SCH (06:12)
[2018-01-12 06:31] LABS: Basophils % (A) 1 %; Eosinophils # (A) 0.2 k/uL (0-0.7); Eosinophils % (A) 4 %; HCT 37.6 % (34.0-46.0); HGB 12.3 gm/dL (11.4-16.0); Lymphocytes # (A) 1.4 k/uL (1.0-4.8); Lymphocytes % (A) 22 %; MCHC 32.7 g/dL (31.0-37.0); MCV 85.8 fL (80.0-100.0); Mean Platelet Volume 6.4; Monocytes # (A) 0.4 k/uL (0-1.0); Monocytes % (A) 7 %; Neutrophils % (A) 65 %; Platelet Count 285 k/uL (150-450); RBC 4.38 m/uL (3.80-5.40); RDW 13.2 % (11.5-15.5); WBC 6.2 k/uL (3.8-10.6)
[2018-01-12 06:46] LABS: Anion Gap 13 mmol/L; Blood Urea Nitrogen 13 mg/dL (7-17); Calcium 9.1 mg/dL (8.4-10.2); Carbon Dioxide 26 mmol/L (22-30); Chloride 95 mmol/L (98-107); Glucose 95 mg/dL (74-99); Potassium 3.9 mmol/L (3.5-5.1); Sodium 134 mmol/L (137-145)
[2018-01-12] MEDS: BIOTIN 5 MG PO SCH (08:27)
[2018-01-12] MEDS: PARoxetine 20 MG TAB PO SCH (08:28)
[2018-01-12] MEDS: HEPARIN SODIUM,PORCINE 5,000 UNIT/ML 1 ML VIAL SQ SCH ×2 (08:28→20:53)
[2018-01-12] MEDS: MEMANTINE 10 MG TAB PO SCH ×2 (08:28→20:53)
[2018-01-12] MEDS: PSYLLIUM HUSK 100% 6 GM PACKET PO SCH (08:28)
[2018-01-12] MEDS: amLODIPine 5 MG TAB PO SCH (08:28)
[2018-01-12] MEDS: CLOPIDOGREL 75 MG TAB PO SCH (08:28)
[2018-01-12] MEDS: OXcarbazepine 300 MG TAB PO SCH ×2 (08:28→20:53)
--- NOTE | 2018-01-12 13:45 | P.PN ---
Subjective 82-year-old pleasant female admitted for weakness in the left side of the body with very minimal facial involvement. Patient appears to have cerebrovascular accident involving the right internal capsule. Patient will need an MRI, neurology will evaluate the patient and let them decide about the MRI. Patient uses aspirin at home may need to be discharged on Plavix. I'm ordering an echocardiogram, we'll also consult Dr. Mcintosh for possibility of placement to inpatient rehabilitation. Patient will be started on statin as well lighted panel will be obtained for tomorrow. Patient still has weakness and strength of the road and 3/5 in the left arm and around 2-3/5 in the left leg with tingling and numbness in both left arm and left leg. Which as per the patient is an improvement since that hospitalization 01/10/2018 Patient does have improvement in her left time weakness a little bit and had a left arm strength is around 3-4 /5 and left leg weakness remains the same. Patient was a valid by neurology, MRI was obtained which showed acute evaluating infarct in the posterior right coronary radiate the in the frontoparietal junction which explains his symptoms of weakness. All the workup including echocardiogram were done which were negative. Patient was switched to Plavix which will be continued. Patient is accepted to go to inpatient rehabilitation at [facility] but patient is awaiting for beds 01/11/2018 No overnight events, patient is awaiting disposition to inpatient rehabilitation 01/12/2018 No overnight events Constitutional: Denied any fatigue denied any fever. Cardio vascular: denied any chest pain, palpitations Gastrointestinal denied any nausea vomiting Pulmonary: Denied any shortness of breath cough Neurologic as mentioned above Objective - Vital Signs Vital signs: Vital Signs Temp 97.8 F 01/12/18 11:45 Pulse 79 01/12/18 11:45 Resp 18 01/12/18 11:45 BP 157/73 01/12/18 11:45 Pulse Ox 96 01/12/18 11:45 Intake & Output 01/11/18 01/12/18 01/12/18 18:59 06:59 18:59 Intake Total 600 480 Balance 600 480 Weight 61.5 kg Intake: Oral 600 480 Other: Voiding Method Bedside Commode Bedside Commode Bedside Commode # Voids 5 1 3 - Exam PHYSICAL EXAMINATION: GENERAL: The patient is alert and oriented x3, not in any acute distress. Well developed, well nourished. HEENT: Pupils are round and equally reacting to light. EOMI. No scleral icterus. No conjunctival pallor. Normocephalic, atraumatic. No pharyngeal erythema. No thyromegaly. CARDIOVASCULAR: S1 and S2 present. No murmurs, rubs, or gallops. PULMONARY: Chest is clear to auscultation, no wheezing or crackles. ABDOMEN: Soft, nontender, nondistended, normoactive bowel sounds. No palpable organomegaly. MUSCULOSKELETAL: No joint swelling or deformity. EXTREMITIES: No cyanosis, clubbing, or pedal edema. NEUROLOGICAL: No focal weakness as dictated in the interval history from January 10 SKIN: No rashes. - Labs CBC & Chem 7: 01/12/18 06:15 01/12/18 06:15 Labs: Abnormal Lab Results - Last 24 Hours (Table) 01/12/18 Range/Units 06:15 Sodium 134 L (137-145) mmol/L Chloride 95 L (98-107) mmol/L Microbiology - Last 24 Hours (Table) 01/08/18 17:17 Blood Culture - Preliminary Blood No Growth after 72 hours Assessment and Plan Plan: -Possible cerebral vascular accident involving the right cerebral hemisphere ischemic stroke, subcortical in coronary radiate of fronto parietal cortex, which is middle cerebral artery territory. Further management as mentioned in the interval history history -Asthma without any acute exacerbation -Hypertension -Hyperlipidemia -Anxiety disorder For above-mentioned chronic medical problems patient will be resumed and continued on appropriate home medications.
[2018-01-12] MEDS: SODIUM CHLORIDE 0.9% 1,000 ML IV SCH (20:53)
[2018-01-12] MEDS: ATORVASTATIN 40 MG TAB PO SCH (20:53)
[2018-01-13] MEDS: LEVOTHYROXINE 75 MCG TAB PO SCH (06:47)
[2018-01-13] MEDS: PANTOPRAZOLE 40 MG TABLET PO SCH (06:47)
[2018-01-13] MEDS: PARoxetine 20 MG TAB PO SCH (06:49)
[2018-01-13] MEDS: HEPARIN SODIUM,PORCINE 5,000 UNIT/ML 1 ML VIAL SQ SCH ×2 (06:49→20:11)
[2018-01-13] MEDS: CLOPIDOGREL 75 MG TAB PO SCH (06:49)
[2018-01-13] MEDS: OXcarbazepine 300 MG TAB PO SCH ×2 (06:49→20:11)
[2018-01-13] MEDS: amLODIPine 5 MG TAB PO SCH (06:49)
[2018-01-13] MEDS: MEMANTINE 10 MG TAB PO SCH ×2 (06:49→20:11)
[2018-01-13] MEDS: BIOTIN 5 MG PO SCH (06:50)
[2018-01-13] MEDS: PSYLLIUM HUSK 100% 6 GM PACKET PO SCH (06:52)
[2018-01-13 08:08] LABS: Anion Gap 13 mmol/L; Blood Urea Nitrogen 13 mg/dL (7-17); Calcium 9.5 mg/dL (8.4-10.2); Carbon Dioxide 27 mmol/L (22-30); Chloride 95 mmol/L (98-107); Glucose 101 mg/dL (74-99); Potassium 4.2 mmol/L (3.5-5.1); Sodium 135 mmol/L (137-145)
[2018-01-13 08:14] LABS: Basophils % (A) 1 %; Eosinophils # (A) 0.2 k/uL (0-0.7); Eosinophils % (A) 4 %; HCT 40.4 % (34.0-46.0); HGB 13.2 gm/dL (11.4-16.0); Lymphocytes # (A) 1.3 k/uL (1.0-4.8); Lymphocytes % (A) 22 %; MCH 28.3 pg (25.0-35.0); MCHC 32.6 g/dL (31.0-37.0); MCV 86.8 fL (80.0-100.0); Mean Platelet Volume 6.7; Monocytes # (A) 0.4 k/uL (0-1.0); Monocytes % (A) 7 %; Neutrophils # (A) 3.9 k/uL (1.3-7.7); Neutrophils % (A) 65 %; Platelet Count 313 k/uL (150-450); RBC 4.65 m/uL (3.80-5.40); RDW 13.2 % (11.5-15.5)
--- NOTE | 2018-01-13 14:42 | P.PN ---
Subjective 82-year-old pleasant female admitted for weakness in the left side of the body with very minimal facial involvement. Patient appears to have cerebrovascular accident involving the right internal capsule. Patient will need an MRI, neurology will evaluate the patient and let them decide about the MRI. Patient uses aspirin at home may need to be discharged on Plavix. I'm ordering an echocardiogram, we'll also consult Dr. Mcintosh for possibility of placement to inpatient rehabilitation. Patient will be started on statin as well lighted panel will be obtained for tomorrow. Patient still has weakness and strength of the road and 3/5 in the left arm and around 2-3/5 in the left leg with tingling and numbness in both left arm and left leg. Which as per the patient is an improvement since that hospitalization 01/10/2018 Patient does have improvement in her left time weakness a little bit and had a left arm strength is around 3-4 /5 and left leg weakness remains the same. Patient was a valid by neurology, MRI was obtained which showed acute evaluating infarct in the posterior right coronary radiate the in the frontoparietal junction which explains his symptoms of weakness. All the workup including echocardiogram were done which were negative. Patient was switched to Plavix which will be continued. Patient is accepted to go to inpatient rehabilitation at [facility] but patient is awaiting for beds 01/11/2018 No overnight events, patient is awaiting disposition to inpatient rehabilitation 01/12/2018 No overnight events 01/13/2018 Patient is awaiting to be discharged inpatient rehab rotation tomorrow Constitutional: Denied any fatigue denied any fever. Cardio vascular: denied any chest pain, palpitations Gastrointestinal denied any nausea vomiting Pulmonary: Denied any shortness of breath cough Neurologic as mentioned above Objective - Vital Signs Vital signs: Vital Signs Temp 96.3 F L 01/13/18 07:30 Pulse 77 01/13/18 07:30 Resp 18 01/13/18 07:30 BP 165/73 01/13/18 07:30 Pulse Ox 96 01/13/18 07:30 Intake & Output 01/12/18 01/13/18 01/13/18 18:59 06:59 18:59 Intake Total 958 Balance 958 Intake: Oral 958 Other: Voiding Method Bedside Commode # Voids 3 1 1 - Exam PHYSICAL EXAMINATION: GENERAL: The patient is alert and oriented x3, not in any acute distress. Well developed, well nourished. HEENT: Pupils are round and equally reacting to light. EOMI. No scleral icterus. No conjunctival pallor. Normocephalic, atraumatic. No pharyngeal erythema. No thyromegaly. CARDIOVASCULAR: S1 and S2 present. No murmurs, rubs, or gallops. PULMONARY: Chest is clear to auscultation, no wheezing or crackles. ABDOMEN: Soft, nontender, nondistended, normoactive bowel sounds. No palpable organomegaly. MUSCULOSKELETAL: No joint swelling or deformity. EXTREMITIES: No cyanosis, clubbing, or pedal edema. NEUROLOGICAL: No focal weakness as dictated in the interval history from January 10 SKIN: No rashes. - Labs CBC & Chem 7: 01/13/18 07:18 01/13/18 07:18 Labs: Abnormal Lab Results - Last 24 Hours (Table) 01/13/18 Range/Units 07:18 Sodium 135 L (137-145) mmol/L Chloride 95 L (98-107) mmol/L Glucose 101 H (74-99) mg/dL Microbiology - Last 24 Hours (Table) 01/08/18 17:17 Blood Culture - Preliminary Blood No Growth after 96 hours Assessment and Plan Plan: -Possible cerebral vascular accident involving the right cerebral hemisphere ischemic stroke, subcortical in coronary radiate of fronto parietal cortex, which is middle cerebral artery territory. Further management as mentioned in the interval history history -Asthma without any acute exacerbation -Hypertension -Hyperlipidemia -Anxiety disorder For above-mentioned chronic medical problems patient will be resumed and continued on appropriate home medications.
[2018-01-13] MEDS: SODIUM CHLORIDE 0.9% 1,000 ML IV SCH (20:11)
[2018-01-13] MEDS: ATORVASTATIN 40 MG TAB PO SCH (20:11)
[2018-01-14 06:02] VITALS: BP 191/86; PULSE 78; RESP 17; TEMP 96.9
[2018-01-14] MEDS: LEVOTHYROXINE 75 MCG TAB PO SCH (06:18)
[2018-01-14] MEDS: PANTOPRAZOLE 40 MG TABLET PO SCH (07:42)
[2018-01-14] MEDS: OXcarbazepine 300 MG TAB PO SCH (07:42)
[2018-01-14] MEDS: amLODIPine 5 MG TAB PO SCH (07:42)
[2018-01-14] MEDS: MEMANTINE 10 MG TAB PO SCH (07:42)
[2018-01-14] MEDS: CLOPIDOGREL 75 MG TAB PO SCH (07:42)
[2018-01-14] MEDS: HEPARIN SODIUM,PORCINE 5,000 UNIT/ML 1 ML VIAL SQ SCH (07:42)
[2018-01-14] MEDS: PARoxetine 20 MG TAB PO SCH (07:42)
[2018-01-14] MEDS: PSYLLIUM HUSK 100% 6 GM PACKET PO SCH (07:48)
[2018-01-14] MEDS: BIOTIN 5 MG PO SCH (07:49)
[2018-01-14 08:23] LABS: Basophils % (A) 1 %; Eosinophils # (A) 0.3 k/uL (0-0.7); Eosinophils % (A) 4 %; HCT 39.2 % (34.0-46.0); HGB 12.8 gm/dL (11.4-16.0); Lymphocytes # (A) 1.3 k/uL (1.0-4.8); Lymphocytes % (A) 20 %; MCH 28.2 pg (25.0-35.0); MCHC 32.6 g/dL (31.0-37.0); MCV 86.3 fL (80.0-100.0); Mean Platelet Volume 6.8; Monocytes # (A) 0.5 k/uL (0-1.0); Monocytes % (A) 8 %; Neutrophils # (A) 4.1 k/uL (1.3-7.7); Neutrophils % (A) 65 %; Platelet Count 294 k/uL (150-450); RBC 4.53 m/uL (3.80-5.40); RDW 13.4 % (11.5-15.5); WBC 6.3 k/uL (3.8-10.6)
[2018-01-14 08:56] LABS: Anion Gap 13 mmol/L; Blood Urea Nitrogen 14 mg/dL (7-17); Calcium 9.3 mg/dL (8.4-10.2); Carbon Dioxide 26 mmol/L (22-30); Chloride 97 mmol/L (98-107); Glucose 100 mg/dL (74-99); Potassium 4.3 mmol/L (3.5-5.1); Sodium 136 mmol/L (137-145)
--- NOTE | 2018-01-14 15:30 | DS ---
DISCHARGE SUMMARY Patient is a pleasant 82-year-old female admitted for left-sided weakness. Patient was found to have stroke involving the middle cerebral artery on the right side. The patient has a subcortical stroke. The patient was switched to Plavix and patient is on 40 mg atorvastatin. The patient is being discharged on these medications. On physical examination, NEUROLOGICAL EXAMINATION: Patient has about 4/5 strength in left upper extremity and left lower extremity. Patient has significant improvement since her hospitalization and the weakness. Other medical problems include hypertension, hypothyroidism, anxiety disorder. DISCHARGE MEDICATIONS INCLUDE: 1. Tylenol as needed for pain. 2. Amlodipine 5 mg daily. 3. Docusate 100 mg as needed. 4. Levothyroxine 75 mcg. 5. Namenda 10 mg daily. 6. Oxcarbazepine 300 mg p.o. 7. Paxil 20 mg. 8. Atorvastatin 40 mg daily. 9. Plavix 75 mg daily. For accurate list of all her medications, please refer to my discharge medication list. MMJOHN / GUERLINE: [id number] /
== END 2018-01-14 16:00 | disposition other institution (70) | DRG 65 ==
LOC: EC 09:20 → 6SEL 11:49 → 4MS4W 01-12 22:34
PROVIDERS: ADMIT Hospitalist; ATTEND Hospitalist
DX: I63.9 Cerebral infarction, unspecified (principal); G81.94 Hemiplegia, unspecified affecting left nondominant side; R29.703 NIHSS score 3; E03.9 Hypothyroidism, unspecified; E78.5 Hyperlipidemia, unspecified; I10 Essential (primary) hypertension; I34.0 Nonrheumatic mitral (valve) insufficiency; J45.909 Unspecified asthma, uncomplicated; K21.9 Gastro-esophageal reflux disease without esophagitis; R29.810 Facial weakness; R47.1 Dysarthria and anarthria; F41.9 Anxiety disorder, unspecified; Z96.1 Presence of intraocular lens; Z79.82 Long term (current) use of aspirin; Z79.899 Other long term (current) drug therapy; Z79.890 Hormone replacement therapy; Z82.0 Family history of epilepsy and other diseases of the nervous system; Z83.3 Family history of diabetes mellitus; Z82.49 Family history of ischemic heart disease and other diseases of the circulatory system; Z90.710 Acquired absence of both cervix and uterus; Z87.891 Personal history of nicotine dependence; Z98.42 Cataract extraction status, left eye; Z98.41 Cataract extraction status, right eye; Z88.0 Allergy status to penicillin; Z88.2 Allergy status to sulfonamides
CPT/HCPCS: 70450; 70496; 70498; 70551; 71046; 80048; 80053; 80061; 81003; 82550; 82553; 83090; 83735; 84100; 84484; 85025; 85610; 85730; 87040; 93306; 94760; 95819

== ENCOUNTER → 2018-03-11 | Outpatient (CLI) | payer MEDICARE | END | disposition home or self-care (01) | LOC: LABWHC1 15:34 | PROVIDERS: ATTEND Psychiatry & Neurology Neurology | DX: G50.0 Trigeminal neuralgia (principal) | CPT/HCPCS: 36415; 80183 ==

== ENCOUNTER → 2018-10-17 | Outpatient (CLI) | payer MEDICARE ==
--- NOTE | 2018-10-20 11:57 | MM ---
Reason for exam: screening (asymptomatic). Last mammogram was performed 6 years and 7 months ago. History: Patient is postmenopausal. Benign right mammotome panel of the right breast, September 19, 2011. Benign stereotactic core biopsy of the left breast, April 27, 2004. Taking estrogen for 20 years beginning at age 56. Physical Findings: A clinical breast exam by your physician is recommended on an annual basis and results should be correlated with mammographic findings. MG 3D Screening Mammo W/Cad Bilateral CC and MLO view(s) were taken. Prior study comparison: April 02, 2012, right diagnostic mammogram w/CAD. August 31, 2011, [facility] DIGITAL BILATERAL MAMMOGRAM w/CAD. The breast tissue is heterogeneously dense. This may lower the sensitivity of mammography. Stable benign calcifications. Stable post operative distortion left breast. No significant changes when compared with prior studies. ASSESSMENT: Benign, BI-RAD 2 RECOMMENDATION: Routine screening mammogram of both breasts in 1 year.
== END | disposition home or self-care (01) ==
LOC: RADMAMWWP 10:55
PROVIDERS: ATTEND Family Medicine
DX: Z12.31 Encounter for screening mammogram for malignant neoplasm of breast (principal)
CPT/HCPCS: 77063; 77067

== ENCOUNTER 2018-10-20 10:16 | Inpatient (IN) | payer MEDICARE ==
[2018-10-20] MEDS ORDERED: SODIUM CHLORIDE 0.9% 500 ML 500 ML IV STA (11:10)
[2018-10-20 11:52] LABS: Basophils % (A) 0 %; Eosinophils # (A) 0.1 k/uL (0-0.7); Eosinophils % (A) 2 %; HCT 39.7 % (34.0-46.0); HGB 13.3 gm/dL (11.4-16.0); Lymphocytes # (A) 0.7 k/uL (1.0-4.8); Lymphocytes % (A) 12 %; MCH 27.7 pg (25.0-35.0); MCHC 33.4 g/dL (31.0-37.0); MCV 82.8 fL (80.0-100.0); Monocytes # (A) 0.3 k/uL (0-1.0); Monocytes % (A) 5 %; Neutrophils # (A) 4.4 k/uL (1.3-7.7); Neutrophils % (A) 80 %; Platelet Count 293 k/uL (150-450); RDW 13.6 % (11.5-15.5); WBC 5.5 k/uL (3.8-10.6)
[2018-10-20] MEDS ORDERED: PANTOPRAZOLE 40 MG/10 ML VIAL IVP STA (11:52)
--- NOTE | 2018-10-20 11:57 | ED ---
GI Bleed HPI - General Chief complaint: GI Bleed Stated complaint: vomiting Time Seen by Provider: 10/20/18 11:09 Source: patient Mode of arrival: ambulatory - History of Present Illness Initial comments: 83-year-old female presents today for chief complaint of dark vomit, weakness. Patient states she's had vomiting and nausea for the past 2-3 days. Patient denies history of peptic ulcer disease. Patient denies hematochezia or melena. Patient states her stools have been listed than normal. Patient states she has this sensation of a systolic denies severe abdominal pain. Patient has chest pain dyspnea despite exertion. Patient states that she has generalized weakness she denies weakness of his specific extremity or face. Patient denies fever night sweats. Patient admits to cold intolerance. Denies palpitations. Patient denies back pain, leg swelling, upper extremity paresthesias or jaw pain. Remaining review of systems negative. Pt is on plavix. - Related Data Home Medications Medication Instructions Recorded Confirmed Aspirin 81 mg PO DAILY 01/08/18 10/20/18 Biotin 5 mg PO DAILY 01/08/18 10/20/18 Levothyroxine Sodium [Tirosint] 75 mcg PO DAILY 01/08/18 10/20/18 Memantine [Namenda] 10 mg PO BID 01/08/18 10/20/18 PARoxetine [Paxil] 20 mg PO DAILY 01/08/18 10/20/18 amLODIPine [Norvasc] 5 mg PO DAILY 01/08/18 10/20/18 Azo Urinary Pain Relief 2 tab PO TID PRN 10/20/18 10/20/18 OXcarbazepine [Trileptal] 300 mg PO BID 10/20/18 10/20/18 Previous Rx's Medication Instructions Recorded Atorvastatin [Lipitor] 40 mg PO HS tab 01/14/18 Clopidogrel [Plavix] 75 mg PO DAILY tab 01/14/18 Meclizine [Antivert] 25 mg PO DAILY PRN tab 01/14/18 Melatonin 3 mg PO HS PRN tablet 01/14/18 Allergies Allergy/AdvReac Type Severity Reaction Status Date / Time Penicillins Allergy Rash/Hives Verified 10/20/18 11:33 Sulfa (Sulfonamide AdvReac Itching Verified 10/20/18 11:33 Antibiotics) Review of Systems ROS Statement: Those systems with pertinent positive or pertinent negative responses have been documented in the HPI. ROS Other: All systems not noted in ROS Statement are negative. Past Medical History Past Medical History: Asthma, Eye Disorder, GERD/Reflux, Hyperlipidemia, Hypertension, Neurologic Disorder, Thyroid Disorder Additional Past Medical History / Comment(s): TRIGEMINAL NEURALGIA, MIGRAINES, VERTIGO, PAST SMALL BOWEL OBSTRUCTIONS, DIVERTICULAR DISEASE, HYPOTHYROID, BILATERAL EYE ASTIGMATISM, UTIS, ANEMIA, SINUS PROBLEMS History of Any Multi-Drug Resistant Organisms: None Reported Past Surgical History: Bowel Resection, Breast Surgery, Hysterectomy, Tubal Ligation Additional Past Surgical History / Comment(s): EXPLORATORY LAP/LYSIS OF ADHESIONS-2 BOWEL SURGERIES, COLONOSCOPY, BILATERAL CATARACT REMOVAL/LENS IMPLANTS, BRAIN-GAMMA RAY KNIFE SURGERY AT [facility] FOR TRIGEMINAL NEURALGIA, SOFIE BENIGN BREAST BX Past Anesthesia/Blood Transfusion Reactions: Motion Sickness Additional Past Anesthesia/Blood Transfusion Reaction / Comment(s): HX OF VERTI GO. PT HAS RECEIVED BLOOD INTHE PAST WITHOUT REACTION. Past Psychological History: Anxiety Smoking Status: Former smoker Past Alcohol Use History: None Reported Past Drug Use History: None Reported - Past Family History Son(s) Family Medical History: Cancer, Neurologic Disorder Additional Family Medical History / Comment(s): ms Father Family Medical History: Hypertension, Myocardial Infarction ([place]) Additional Family Medical History / Comment(s): enlarged heart Mother Family Medical History: Diabetes Mellitus Additional Family Medical History / Comment(s): MOTHER LIVED TO BE 98YRS OLD. Sister(s) Family Medical History: CVA/TIA Brother(s) Additional Family Medical History / Comment(s): glaucoma General Exam - General Exam Comments Initial Comments: General: The patient is awake and alert, in no distress. Eye: +3 mm pupils are equal, round and reactive to light, extra-ocular movements are intact. No nystagmus. There is normal conjunctiva bilaterally. No signs of icterus. Ears, nose, mouth and throat: There are moist mucous membranes and no oral lesions. Neck: The neck is supple, there is no tenderness or JVD. Cardiovascular: There is a regular rate and rhythm. No murmur, rub or gallop is appreciated. Respiratory: Lungs are clear to auscultation, respirations are non-labored, breath sounds are equal. No wheezes, stridor, rales, or rhonchi. Gastrointestinal: Soft, non-distended, mild tenderness to the upper left portion of abdomen without masses or organomegaly noted. There is no rebound or guarding present. No CVA tenderness. Bowel sounds are unremarkable. Musculoskeletal: No crepitus palpation of anterior chest wall. Normal ROM, no tenderness. Strength 5/5. Sensation intact. Pulses equal bilaterally 2+. Neurological: A&O x 3. CN II-XII intact, There are no obvious motor or sensory deficits. Coordination appears grossly intact. Speech is normal. Skin: Skin is warm and dry and no rashes or lesions are noted. Psychiatric: Cooperative, appropriate mood & affect, normal judgment. Course Vital Signs 10/20/18 10/20/18 10/20/18 11:01 12:00 12:30 Temperature 98.3 F Pulse Rate 77 78 77 Respiratory 18 20 18 Rate Blood Pressure 171/81 183/79 183/79 O2 Sat by Pulse 98 95 96 Oximetry 10/20/18 13:59 Temperature Pulse Rate 70 Respiratory 16 Rate Blood Pressure 173/77 O2 Sat by Pulse 98 Oximetry Medical Decision Making - Medical Decision Making 83-year-old female presenting today for chief complaint of coffee ground emesis. She has no history of peptic ulcer disease. Patient denies any liver cirrhosis or chronic alcoholism. Patient states she has had vomiting for the past 2-3 days. Patient admits nausea. Patient denies any significant abdominal pain. Abdominal exam benign. No rigidity guarding or pain to palpation. KUB (-) for obstruction. HgB stable.BUN/Cr within acceptable limits PT given IVF. She remained hemodynamically stable while in the emergency part. At this time given patient's complaint and advanced age patient be admitted for GI consultation. Patient is given Protonix in the emergency department. Discussed the case attempted by who is agreeable with patient plan of care as well as admission. - Lab Data Result diagrams: 10/20/18 16:05 10/20/18 11:35 Lab Results 10/20/18 10/20/18 10/20/18 Range/Units 11:35 11:35 11:35 WBC 5.5 (3.8-10.6) k/uL RBC 4.80 (3.80-5.40) m/uL Hgb 13.3 (11.4-16.0) gm/dL Hct 39.7 (34.0-46.0) % MCV 82.8 (80.0-100.0) fL MCH 27.7 (25.0-35.0) pg MCHC 33.4 (31.0-37.0) g/dL RDW 13.6 (11.5-15.5) % Plt Count 293 (150-450) k/uL Neutrophils % 80 % Lymphocytes % 12 % Monocytes % 5 % Eosinophils % 2 % Basophils % 0 % Neutrophils # 4.4 (1.3-7.7) k/uL Lymphocytes # 0.7 L (1.0-4.8) k/uL Monocytes # 0.3 (0-1.0) k/uL Eosinophils # 0.1 (0-0.7) k/uL Basophils # 0.0 (0-0.2) k/uL PT (9.0-12.0) sec INR (<1.2) APTT (22.0-30.0) sec Sodium 138 (137-145) mmol/L Potassium 4.2 (3.5-5.1) mmol/L Chloride 102 (98-107) mmol/L Carbon Dioxide 24 (22-30) mmol/L Anion Gap 12 mmol/L BUN 9 (7-17) mg/dL Creatinine 0.56 (0.52-1.04) mg/dL Est GFR (CKD-EPI)AfAm >90 (>60 ml/min/1.73 sqM) Est GFR (CKD-EPI)NonAf 88 (>60 ml/min/1.73 sqM) Glucose 106 H (74-99) mg/dL Plasma Lactic Acid Star 1.1 (0.7-2.0) mmol/L Calcium 9.7 (8.4-10.2) mg/dL Total Bilirubin 0.5 (0.2-1.3) mg/dL AST 19 (14-36) U/L ALT 21 (9-52) U/L Alkaline Phosphatase 97 (38-126) U/L Creatine Kinase 50 (30-135) U/L Troponin I (0.000-0.034) ng/mL Total Protein 8.1 (6.3-8.2) g/dL Albumin 4.4 (3.5-5.0) g/dL Stool Occult Blood (Negative) Blood Type Blood Type Recheck Antibody Screen Spec Expiration Date 10/20/18 10/20/18 10/20/18 Range/Units 11:35 11:35 11:35 WBC (3.8-10.6) k/uL RBC (3.80-5.40) m/uL Hgb (11.4-16.0) gm/dL Hct (34.0-46.0) % MCV (80.0-100.0) fL MCH (25.0-35.0) pg MCHC (31.0-37.0) g/dL RDW (11.5-15.5) % Plt Count (150-450) k/uL Neutrophils % % Lymphocytes % % Monocytes % % Eosinophils % % Basophils % % Neutrophils # (1.3-7.7) k/uL Lymphocytes # (1.0-4.8) k/uL Monocytes # (0-1.0) k/uL Eosinophils # (0-0.7) k/uL Basophils # (0-0.2) k/uL PT 9.6 (9.0-12.0) sec INR 0.9 (<1.2) APTT 23.7 (22.0-30.0) sec Sodium (137-145) mmol/L Potassium (3.5-5.1) mmol/L Chloride (98-107) mmol/L Carbon Dioxide (22-30) mmol/L Anion Gap mmol/L BUN (7-17) mg/dL Creatinine (0.52-1.04) mg/dL Est GFR (CKD-EPI)AfAm (>60 ml/min/1.73 sqM) Est GFR (CKD-EPI)NonAf (>60 ml/min/1.73 sqM) Glucose (74-99) mg/dL Plasma Lactic Acid Star (0.7-2.0) mmol/L Calcium (8.4-10.2) mg/dL Total Bilirubin (0.2-1.3) mg/dL AST (14-36) U/L ALT (9-52) U/L Alkaline Phosphatase (38-126) U/L Creatine Kinase (30-135) U/L Troponin I <0.012 (0.000-0.034) ng/mL Total Protein (6.3-8.2) g/dL Albumin (3.5-5.0) g/dL Stool Occult Blood (Negative) Blood Type A Positive Blood Type Recheck No Antibody Screen NEGATIVE Spec Expiration Date 10/23/2018233410/20/18 Range/Units 12:15 WBC (3.8-10.6) k/uL RBC (3.80-5.40) m/uL Hgb (11.4-16.0) gm/dL Hct (34.0-46.0) % MCV (80.0-100.0) fL MCH (25.0-35.0) pg MCHC (31.0-37.0) g/dL RDW (11.5-15.5) % Plt Count (150-450) k/uL Neutrophils % % Lymphocytes % % Monocytes % % Eosinophils % % Basophils % % Neutrophils # (1.3-7.7) k/uL Lymphocytes # (1.0-4.8) k/uL Monocytes # (0-1.0) k/uL Eosinophils # (0-0.7) k/uL Basophils # (0-0.2) k/uL PT (9.0-12.0) sec INR (<1.2) APTT (22.0-30.0) sec Sodium (137-145) mmol/L Potassium (3.5-5.1) mmol/L Chloride (98-107) mmol/L Carbon Dioxide (22-30) mmol/L Anion Gap mmol/L BUN (7-17) mg/dL Creatinine (0.52-1.04) mg/dL Est GFR (CKD-EPI)AfAm (>60 ml/min/1.73 sqM) Est GFR (CKD-EPI)NonAf (>60 ml/min/1.73 sqM) Glucose (74-99) mg/dL Plasma Lactic Acid Star (0.7-2.0) mmol/L Calcium (8.4-10.2) mg/dL Total Bilirubin (0.2-1.3) mg/dL AST (14-36) U/L ALT (9-52) U/L Alkaline Phosphatase (38-126) U/L Creatine Kinase (30-135) U/L Troponin I (0.000-0.034) ng/mL Total Protein (6.3-8.2) g/dL Albumin (3.5-5.0) g/dL Stool Occult Blood Negative (Negative) Blood Type Blood Type Recheck Antibody Screen Spec Expiration Date - EKG Data EKG Comments: Ventricular rate 68 bpm, MO interval 166 pulse seconds, QRS confucianism 82 ms, QT/QTC 406/431 ms. Normal sinus. Left axis No ST elevation or depression. Nonspecific T-wave. Disposition Clinical Impression: Coffee ground emesis, Nausea and vomiting, Generalized weakness Disposition: ADMITTED IP TO THIS HOSP Condition: Stable Is patient prescribed a controlled substance at d/c from ED?: No Time of Disposition: 13:10 Decision to Admit Reason: Admit from EC Decision Date: 10/20/18 Decision Time: 13:10
[2018-10-20 12:05] LABS: INR 0.9 (<1.2); Partial Thromboplastin Time 23.7 sec (22.0-30.0); Prothrombin Time 9.6 sec (9.0-12.0)
[2018-10-20 12:15] LABS: ALT 21 U/L (9-52); AST 19 U/L (14-36); Albumin 4.4 g/dL (3.5-5.0); Alkaline Phosphatase 97 U/L (38-126); Anion Gap 12 mmol/L; Blood Urea Nitrogen 9 mg/dL (7-17); Calcium 9.7 mg/dL (8.4-10.2); Carbon Dioxide 24 mmol/L (22-30); Chloride 102 mmol/L (98-107); Creatine Kinase 50 U/L (30-135); Glucose 106 mg/dL (74-99); Potassium 4.2 mmol/L (3.5-5.1); Sodium 138 mmol/L (137-145); Total Bilirubin 0.5 mg/dL (0.2-1.3); Total Protein 8.1 g/dL (6.3-8.2)
--- NOTE | 2018-10-20 12:21 | XR ---
EXAMINATION TYPE: XR chest 2V DATE OF EXAM: 10/20/2018 COMPARISON: Prior chest x-ray 01/08/2018 HISTORY: Nausea, vomiting and pain TECHNIQUE: Frontal and lateral views of the chest are obtained on 3 images. FINDINGS: There is no focal air space opacity, pleural effusion, or pneumothorax seen. The cardiac silhouette size is stable. The osseous structures are intact. There are overlying cardiac leads. Pa tient is rotated. Aorta is dense. IMPRESSION: No acute cardiopulmonary process.
[2018-10-20] MEDS ORDERED: NALOXONE 0.4 MG/ML 1 ML VIAL IV PRN (13:10)
--- NOTE | 2018-10-20 13:27 | XR ---
Abdomen HISTORY: Pain and vomiting Frontal view the abdomen on 2 images correlated prior exam 10/16/2014 Lung bases are clear. There is no evident pneumoperitoneum or bowel obstruction. Postop changes, vasc ular calcifications again noted in the pelvis. Bone mineralization is stable. IMPRESSION: Nonobstructive bowel gas pattern. Follow-up as indicated.
[2018-10-20] MEDS: SODIUM CHLORIDE 0.9% 1,000 ML IV SCH (14:04)
[2018-10-20 16:32] LABS: Basophils % (A) 0 %; Eosinophils # (A) 0.1 k/uL (0-0.7); Eosinophils % (A) 2 %; HCT 39.1 % (34.0-46.0); HGB 13.3 gm/dL (11.4-16.0); Lymphocytes # (A) 0.8 k/uL (1.0-4.8); Lymphocytes % (A) 13 %; MCH 28.3 pg (25.0-35.0); MCHC 33.9 g/dL (31.0-37.0); MCV 83.4 fL (80.0-100.0); Mean Platelet Volume 6.8; Monocytes # (A) 0.3 k/uL (0-1.0); Monocytes % (A) 6 %; Neutrophils # (A) 4.8 k/uL (1.3-7.7); Neutrophils % (A) 78 %; Platelet Count 304 k/uL (150-450); RBC 4.69 m/uL (3.80-5.40); RDW 13.6 % (11.5-15.5); WBC 6.1 k/uL (3.8-10.6)
[2018-10-20] MEDS: ONDANSETRON 4 MG/2 ML VIAL IVP PRN (19:10)
[2018-10-20] MEDS ORDERED: MELATONIN 3 MG TABLET PO PRN (21:11)
[2018-10-20] MEDS ORDERED: MECLIZINE 25 MG TAB PO PRN (21:11)
[2018-10-20] MEDS: HYDROmorphone 0.5 MG/0.5 ML SYRINGE IVP PRN (21:33)
[2018-10-20] MEDS: PANTOPRAZOLE 40 MG/10 ML VIAL IVP SCH (21:34)
--- NOTE | 2018-10-20 22:52 | HP ---
HISTORY AND PHYSICAL DATE OF SERVICE: 10/20/2018 CHIEF COMPLAINT: Vomiting and gastrointestinal bleed. HISTORY OF PRESENT ILLNESS: This 83-year-old woman with a past medical history of multiple medical problems including asthma, GERD, hypertension, hyperlipidemia, history of trigeminal neuralgia with stereotactic surgery, history of stroke, being followed by Dr. Lester in the outpatient setting also had significant abdominal surgery. Patient had exploratory laparotomy, lysis of adhesions, two bowel surgeries, colonoscopy, and currently the patient is complaining of vomiting which is dark in character and weakness. The patient had nausea and vomiting for the last 2-3 days. The stool was reported as normal. Because of increasing difficulty, the patient came to [facility] and was admitted for further evaluation and treatment. CBC, BMP within normal limits. Influenza negative. The patient also had last abdomen pelvis CAT scan in 2015. Otherwise, the patient had a KUB x-ray which showed nonobstructive bowel gas pattern. Gastroenterology evaluation has been sought. There is no history of fever, rigors or chills at this time. PAST MEDICAL HISTORY: Asthma, GERD, hypertension, hyperlipidemia, history of neurogenic bladder, history of trigeminal neuralgia, history of breast surgery, bowel resection. MEDICATIONS: Prior to admission include home medications are: 1. pain relief 2 tabs t.i.d. p.r.n. 2. Norvasc 5 mg p.o. daily. 3. Paxil 20 mg p.o. daily. 4. Trileptal 300 mg p.o. b.i.d. 5. Namenda 10 mg p.o. b.i.d. 6. Melatonin 3 mg q.h.s. p.r.n. 7. Antivert 25 mg daily p.r.n. 8. Tirosint 75 mcg. 9. Plavix 75 mg. 10.Biotin 5 mg p.o. daily. 11.Lipitor 40 mg q.h.s. 12.Aspirin 81 mg. ALLERGIES: PENICILLIN AND SULFA. FAMILY HISTORY: History of cancer, neurology disorder, multiple sclerosis. SOCIAL HISTORY: No history of current smoking. Previous history of smoking. No history of alcohol intake. REVIEW OF SYSTEMS: ENT: Diminished vision, diminished hearing. CARDIOVASCULAR: No angina or palpitations. RESPIRATORY: As mentioned earlier. GI: As mentioned earlier. no dysuria. CENTRAL NERVOUS SYSTEM : As mentioned earlier. ALLERGY/IMMUNOLOGY: No asthma or hay fever. MUSCULOSKELETAL: As mentioned earlier. ENDOCRINE: As mentioned earlier. HEMATOLOGY/ONCOLOGY: No history of anemia. Dermatology: Negative. Rheumatology: Negative. Psychiatry: As mentioned earlier. PHYSICAL EXAMINATION: Alert and oriented x3, pulse 70, blood pressure 173/77, respirations 16, temperature 98.3, pulse ox 98% on room air. HEENT: Conjunctivae normal. Oral mucosa moist. Neck is no jugular venous distention. No carotid bruit. No lymph node enlargement. Cardiovascular: S1, S2 muffled. RESPIRATORY: Breath sounds diminished at bases. A few scattered rhonchi. No crackles. ABDOMEN: Soft. Mild diffuse discomfort on palpation. No guarding. No rigidity. No mass palpable. Legs: No edema. No swelling. Nervous system: Higher functions as mentioned. Moves all 4 limbs. No focal motor or sensory deficits. Lymphatics: No lymph nodes palpable in the neck, axillae or groin. Skin: No ulcer. No rash. No bleeding. JOINTS: No active deforming arthropathy. LABS: CBC within normal limits. Sodium 130, potassium 4.2. ASSESSMENT: 1. Abdominal pain, vomiting possibly acute gastritis, rule out peptic ulcer disease. 2. History of cerebrovascular accident with right cerebral ischemic stroke. 3. History of asthma. 4. Hypertension. 5. Hyperlipidemia. 6. History of anxiety. RECOMMENDATIONS AND DISCUSSION: This 83-year-old woman who presented with multiple medical problems, we will monitor the patient closely. Continue the current medications, symptomatic treatment. Gastroenterology will be consulted. I would also recommend n.p.o. except medications with the patient's vomiting. Otherwise clear liquids may be appropriate. Otherwise, repeat labs will be ordered. be reviewed and further recommendations to follow. Overall prognosis guarded because of multiple complex medical issues. Patient had history of multiple surgical evaluations also. Prognosis guarded. I discussed with the patient who understands and agrees. A copy of this dictation being forwarded to Dr. Lester who is the primary physician. Please also note flu swab is negative. MMODL / IJN: [id number] / MTDD
[2018-10-21] MEDS: SODIUM CHLORIDE 0.9% 1,000 ML IV SCH ×2 (01:39→20:03)
[2018-10-21 03:33] LABS: Appearance,Urine Cloudy (Clear); Bacteria,Urine Occasional /hpf; Bilirubin,Urine Negative (Negative); Blood,Urine Negative (Negative); Color,Urine Yellow; Glucose,Urine (UA) Negative (Negative); Ketones,Urine 1+ (Negative); Leukocyte Esterase,Urine Small (Negative); Mucus,Urine Occasional /hpf; Nitrite,Urine Negative (Negative); PH, Urine 6.5 (5.0-8.0); Protein,Urine 1+ (Negative); RBC,Urine 4 /hpf (0-5); Specific Gravity,Urine 1.014 (1.001-1.035); Squamous Epithelial Cell,Urine 1 /hpf (0-4); Urobilinogen,Urine <2.0 mg/dL (<2.0); WBC,Urine 30 /hpf (0-5)
[2018-10-21] MEDS: ONDANSETRON 4 MG/2 ML VIAL IVP PRN ×3 (03:55→23:14)
[2018-10-21] MEDS: HYDROmorphone 0.5 MG/0.5 ML SYRINGE IVP PRN ×2 (03:55→15:08)
[2018-10-21] MEDS: LEVOTHYROXINE 75 MCG TAB PO SCH (05:34)
[2018-10-21] MEDS: OXcarbazepine 150 MG TAB PO SCH ×2 (08:42→20:04)
[2018-10-21] MEDS: MEMANTINE 10 MG TAB PO SCH ×2 (08:42→20:04)
[2018-10-21] MEDS: PANTOPRAZOLE 40 MG/10 ML VIAL IVP SCH ×2 (08:42→20:04)
[2018-10-21] MEDS: PARoxetine 20 MG TAB PO SCH (08:43)
[2018-10-21] MEDS ORDERED: amLODIPine 5 MG TAB PO SCH (09:00)
[2018-10-21] MEDS ORDERED: NON-FORMULARY DRUG (Biotin [Biotin] 5 MG) PO SCH (09:00)
[2018-10-21] MEDS ORDERED: CLOPIDOGREL 75 MG TAB PO SCH (09:00)
[2018-10-21] MEDS ORDERED: PANTOPRAZOLE 40 MG/10 ML VIAL IV SCH (09:00)
[2018-10-21 09:27] LABS: Anion Gap 9 mmol/L; Blood Urea Nitrogen 8 mg/dL (7-17); Calcium 9.5 mg/dL (8.4-10.2); Carbon Dioxide 26 mmol/L (22-30); Chloride 103 mmol/L (98-107); Glucose 99 mg/dL (74-99); Sodium 138 mmol/L (137-145)
[2018-10-21 10:09] LABS: Basophils % (A) 0 %; Eosinophils # (A) 0.1 k/uL (0-0.7); Eosinophils % (A) 1 %; HCT 39.7 % (34.0-46.0); Lymphocytes # (A) 1.1 k/uL (1.0-4.8); Lymphocytes % (A) 16 %; MCH 27.8 pg (25.0-35.0); MCHC 32.6 g/dL (31.0-37.0); MCV 85.3 fL (80.0-100.0); Mean Platelet Volume 7.2; Monocytes # (A) 0.3 k/uL (0-1.0); Monocytes % (A) 5 %; Neutrophils # (A) 5.2 k/uL (1.3-7.7); Neutrophils % (A) 77 %; Platelet Count 271 k/uL (150-450); RBC 4.66 m/uL (3.80-5.40); RDW 13.1 % (11.5-15.5); WBC 6.8 k/uL (3.8-10.6)
--- NOTE | 2018-10-21 10:38 | P.CONS ---
History of Present Illness - Reason for Consult Consult date: 10/21/18 Coffee-ground emesis Requesting physician: Asher Richardson - Chief Complaint Vomiting - History of Present Illness 83-year-old female with 3 day history of nausea vomiting epigastric abdominal pain coffee-ground emesis. Denies gross hematemesis or hematochezia. Afebrile. Past medical history of GERD trigeminal neuralgia hypertension hyperlipidemia colonic diverticular disease sigmoid resection small bowel obstructions with lysis of adhesions exploratory surgery. Home medications include Plavix aspirin. Hemoglobin 13 previously 13.3. MCV 85. INR 0.9. FOBT negative. Influenza not detected. BUN 9. Creatinine 0.5. No alcohol NSAIDs or excessive usage of aspirin. KUB nonobstructive bowel gas pattern. General surgery following plans for EGD tomorrow. Review of Systems Constitutional: Denies fever, chills, sweats, weight gain, or loss. HEENT: Negative for migraines, blurred vision or loss, earaches, drainage, tinnitus, oral mucosal lesions, dysphagia, or odynophagia. CARDIAC: Negative for chest pain, arrhythmias, or palpitation. RESPIRATORY: Negative for shortness of breath, hemoptysis, cough, or sputum production. GI: See HPI for pertinent findings. : Negative for hematuria, urgency, frequency, polyuria, or dysuria. GYNc: Denies possibility of . Negative vaginal discharge. MUSCULOSKELETAL: Negative for muscle aches, swelling, arthritis, and arthralgias. NEUROLOGIC: Negative for stroke or TIA. ENDOCRINE: Negative for thyroid problems. SKIN: Negative for rash or itching. PSYCHIATRIC: Negative history for depression and anxiety Past Medical History Past Medical History: Asthma, Eye Disorder, GERD/Reflux, Hyperlipidemia, Hypertension, Neurologic Disorder, Thyroid Disorder Additional Past Medical History / Comment(s): TRIGEMINAL NEURALGIA, MIGRAINES, VERTIGO, PAST SMALL BOWEL OBSTRUCTIONS, DIVERTICULAR DISEASE, HYPOTHYROID, BILATERAL EYE ASTIGMATISM, UTIS, ANEMIA, SINUS PROBLEMS History of Any Multi-Drug Resistant Organisms: None Reported Past Surgical History: Bowel Resection, Breast Surgery, Hysterectomy, Tubal Ligation Additional Past Surgical History / Comment(s): EXPLORATORY LAP/LYSIS OF ADHESIONS-2 BOWEL SURGERIES, COLONOSCOPY, BILATERAL CATARACT REMOVAL/LENS IMPLANTS, BRAIN-GAMMA RAY KNIFE SURGERY AT [facility] FOR TRIGEMINAL NEURALGIA, SOFIE BENIGN BREAST BX Past Anesthesia/Blood Transfusion Reactions: Motion Sickness Additional Past Anesthesia/Blood Transfusion Reaction / Comm: HX OF VERTIGO. PT HAS RECEIVED BLOOD INTHE PAST WITHOUT REACTION. Past Psychological History: Anxiety Smoking Status: Former smoker Past Alcohol Use History: None Reported Past Drug Use History: None Reported - Past Family History Son(s) Family Medical History: Cancer, Neurologic Disorder Additional Family Medical History / Comment(s): ms Father Family Medical History: Hypertension, Myocardial Infarction ([place]) Additional Family Medical History / Comment(s): enlarged heart Mother Family Medical History: Diabetes Mellitus Additional Family Medical History / Comment(s): MOTHER LIVED TO BE 98YRS OLD. Sister(s) Family Medical History: CVA/TIA Additional Family Medical History / Comment(s): Sister had TIAs Brother(s) Family Medical History: Eye Disorder Additional Family Medical History / Comment(s): glaucoma Medications and Allergies Home Medications Medication Instructions Recorded Confirmed Type Aspirin 81 mg PO DAILY 01/08/18 10/20/18 History Biotin 5 mg PO DAILY 01/08/18 10/20/18 History Levothyroxine Sodium [Tirosint] 75 mcg PO DAILY 01/08/18 10/20/18 History Memantine [Namenda] 10 mg PO BID 01/08/18 10/20/18 History PARoxetine [Paxil] 20 mg PO DAILY 01/08/18 10/20/18 History amLODIPine [Norvasc] 5 mg PO DAILY 01/08/18 10/20/18 History Atorvastatin [Lipitor] 40 mg PO HS tab 01/14/18 10/20/18 Rx Clopidogrel [Plavix] 75 mg PO DAILY tab 01/14/18 10/20/18 Rx Meclizine [Antivert] 25 mg PO DAILY PRN tab 01/14/18 10/20/18 Rx Melatonin 3 mg PO HS PRN tablet 01/14/18 10/20/18 Rx Azo Urinary Pain Relief 2 tab PO TID PRN 10/20/18 10/20/18 History OXcarbazepine [Trileptal] 300 mg PO BID 10/20/18 10/20/18 History Allergies Allergy/AdvReac Type Severity Reaction Status Date / Time Penicillins Allergy Rash/Hives Verified 10/20/18 11:33 Sulfa (Sulfonamide AdvReac Itching Verified 10/20/18 11:33 Antibiotics) Physical Exam Vitals: Vital Signs Temp Pulse Pulse Resp BP BP Pulse Ox 10/21/18 05:00 98.0 F 74 18 164/77 98 10/21/18 01:40 98.7 F 77 20 173/89 10/21/18 00:00 20 10/20/18 21:00 97.8 F 75 16 212/92 97 10/20/18 13:59 70 16 173/77 98 10/20/18 12:30 77 18 183/79 96 10/20/18 12:00 78 20 183/79 95 10/20/18 11:01 98.3 F 77 18 171/81 98 Intake and Output 10/20/18 10/21/18 10/21/18 22:59 06:59 14:59 Intake Total 360 600 Output Total 450 10 Balance -90 590 Intake: Intake, IV Titration 300 600 Amount Sodium Chloride 0.9% 1, 300 600 000 ml @ 75 mls/hr IV . [id number] SAUMYA Rx#:[id number] Oral 60 0 Output: Gastric Drainage 10 Urine 450 Other: Voiding Method Toilet Incontinent # Voids 2 # Bowel Movements 0 General appearance: The patient is alert, oriented, in no acute distress. HET: Head is normocephalic and atraumatic. Pupils are equal and reactive. Oropharynx is clear without lesions. Neck: Supple without lymphadenopathy. Trachea midline. Heart: S1 S2. Regular rate and rhythm. Lungs: No crackles or wheezes are heard. Abdomen: Soft, mild midepigastric midabdominal tenderness, nondistended with bowel sounds. No peritoneal signs. No palpable organomegaly or masses. Extremities: Normal skin color and turgor. No cyanosis, rash, ulceration, clubbing, or edema. Radial and pedal pulses are 2/4 bilaterally. Neurological: No focal deficits. Strength and sensation are grossly intact. Results CBC & Chem 7: 10/21/18 07:59 10/21/18 07:59 Labs: Abnormal Lab Results - Last 24 Hours (Table) 10/20/18 10/20/18 10/20/18 Range/Units 11:35 11:35 16:05 Lymphocytes # 0.7 L 0.8 L (1.0-4.8) k/uL Creatinine (0.52-1.04) mg/dL Glucose 106 H (74-99) mg/dL Urine Appearance (Clear) Urine Protein (Negative) Urine Ketones (Negative) Ur Leukocyte Esterase (Negative) Urine WBC (0-5) /hpf Urine Bacteria (None) /hpf Urine Mucus (None) /hpf 10/21/18 10/21/18 Range/Units 01:00 07:59 Lymphocytes # (1.0-4.8) k/uL Creatinine 0.48 L (0.52-1.04) mg/dL Glucose (74-99) mg/dL Urine Appearance Cloudy H (Clear) Urine Protein 1+ H (Negative) Urine Ketones 1+ H (Negative) Ur Leukocyte Esterase Small H (Negative) Urine WBC 30 H (0-5) /hpf Urine Bacteria Occasional H (None) /hpf Urine Mucus Occasional H (None) /hpf Microbiology - Last 24 Hours (Table) 10/21/18 01:00 Urine Culture - Preliminary Urine,Clean Catch Abdominal x-ray: report reviewed (Dr. Kaur) Assessment and Plan (1) Coffee ground emesis Narrative/Plan: 83-year-old female with a history of colonic diverticular disease resection small bowel obstructions requiring exploratory surgery underlying GERD hypertension hyperlipidemia maintained on dual antiplatelet therapy admitted with acute abdominal pain nausea vomiting coffee-ground emesis underlying peptic ulcer disease cannot be excluded. Current Visit: Yes Status: Acute Code(s): K92.0 - HEMATEMESIS SNOMED Code(s): 05938196 (2) Nausea and vomiting Current Visit: Yes Status: Acute Code(s): R11.2 - NAUSEA WITH VOMITING, UNSPECIFIED SNOMED Code(s): 43742945 (3) Abdominal pain Current Visit: No Status: Acute Code(s): R10.9 - UNSPECIFIED ABDOMINAL PAIN SNOMED Code(s): 27885511 Plan: 1. Protonix 40 mg twice daily. CBC monitoring. General surgery performing EGD evaluation tomorrow. Diet per surgery. Thank you for this kind referral and the opportunity to participate in the care of your patient. This consultation was discussed with Dr. Kaur. The impression and plan of care have been directed as dictated.
--- NOTE | 2018-10-21 12:05 | CT ---
EXAMINATION TYPE: CT brain wo con DATE OF EXAM: 10/21/2018 COMPARISON: MRI brain dated 01/09/2018 HISTORY: Headache, nausea, and spitting up blood CT DLP: 796 mGycm Automated exposure control for dose reduction was used. FINDINGS: There is an old lacunar injury in the right frontal marks radiata. There is symmetric prominence of the ventricular system and peripheral sulci compatible with age-related volume loss. Patchy areas of hypoattenuation are seen within the periventricular and subcortical white matter. Prominent arachnoid granulations are seen along the tentorium cerebelli. No suspicious extra axial fluid collection. No acute intracranial hemorrhage, midline shift or mass effect. Paranasal sinuses and mastoid air cells are well aerated. Hyperostosis frontalis internus is noted. IMPRESSION: NO ACUTE INTRACRANIAL PROCESS. 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
[2018-10-21] MEDS: LACTATED RINGERS 1,000 ML IV SCH (12:11)
--- NOTE | 2018-10-21 14:46 | P.GSCN ---
History of Present Illness Consult date: 10/21/18 Reason for Consult: abdominal pain Requesting physician: Asher Richardson History of present illness: CHIEF COMPLAINT: Abdominal pain HISTORY OF PRESENT ILLNESS: 83-year-old female who presented to emergency room with a four-day duration of nausea and vomiting. Patient reports she has been having black emesis. Patient is a poor historian. She currently denies abdominal pain. Denies further episodes of nausea or vomiting. Hemoglobin is 13.0 PAST MEDICAL HISTORY: See list. PAST SURGICAL HISTORY: See list. SOCIAL HISTORY: No illicit drug use. REVIEW OF SYSTEMS: CONSTITUTIONAL: Denies fever or chills. HEENT: Denies blurred vision, vision changes, or eye pain. Denies hemoptysis CARDIOVASCULAR: Denies chest pain or pressure. RESPIRATORY: No shortness of breath. GASTROINTESTINAL: Refer to HPI for pertinent findings HEMATOLOGIC: Denies bleeding disorders. GENITOURINARY: Denies any blood in urine. SKIN: Denies pruitis. Denies rash. PHYSICAL EXAM: VITAL SIGNS: Reviewed. GENERAL: Well-developed in no acute distress. HEENT: No sclera icterus. Extraocular movements grossly intact. Moist buccal mucosa. Head is atraumatic, normocephalic. ABDOMEN: Soft. Nondistended. Nontender. NEUROLOGIC: Alert and oriented. Cranial nerves II through XII grossly intact. ASSESSMENT: 1. Nausea with coffee ground emesis x 4 days PLAN: 1. Clear liquid diet today. NPO after midnight 2. Patient will undergo EGD tomorrow 3. Protonix IV twice a day 4. Monitor hemoglobin 5. Hold aspirin and Plavix Nurse practitioner note has been reviewed by physician. Signing provider agrees with the documented findings, assessment, and plan of care. Past Medical History Past Medical History: Asthma, Eye Disorder, GERD/Reflux, Hyperlipidemia, Hypertension, Neurologic Disorder, Thyroid Disorder Additional Past Medical History / Comment(s): TRIGEMINAL NEURALGIA, MIGRAINES, VERTIGO, PAST SMALL BOWEL OBSTRUCTIONS, DIVERTICULAR DISEASE, HYPOTHYROID, BILATERAL EYE ASTIGMATISM, UTIS, ANEMIA, SINUS PROBLEMS History of Any Multi-Drug Resistant Organisms: None Reported Past Surgical History: Bowel Resection, Breast Surgery, Hysterectomy, Tubal Ligation Additional Past Surgical History / Comment(s): EXPLORATORY LAP/LYSIS OF A DHESIONS-2 BOWEL SURGERIES, COLONOSCOPY, BILATERAL CATARACT REMOVAL/LENS IMPLANTS, BRAIN-GAMMA RAY KNIFE SURGERY AT [facility] FOR TRIGEMINAL NEURALGIA, SOFIE BENIGN BREAST BX Past Anesthesia/Blood Transfusion Reactions: Motion Sickness Additional Past Anesthesia/Blood Transfusion Reaction / Comm: HX OF VERTIGO. PT HAS RECEIVED BLOOD INTHE PAST WITHOUT REACTION. Past Psychological History: Anxiety Smoking Status: Former smoker Past Alcohol Use History: None Reported Past Drug Use History: None Reported - Past Family History Son(s) Family Medical History: Cancer, Neurologic Disorder Additional Family Medical History / Comment(s): ms Father Family Medical History: Hypertension, Myocardial Infarction ([place]) Additional Family Medical History / Comment(s): enlarged heart Mother Family Medical History: Diabetes Mellitus Additional Family Medical History / Comment(s): MOTHER LIVED TO BE 98YRS OLD. Sister(s) Family Medical History: CVA/TIA Additional Family Medical History / Comment(s): Sister had TIAs Brother(s) Family Medical History: Eye Disorder Additional Family Medical History / Comment(s): glaucoma Medications and Allergies Home Medications Medication Instructions Recorded Confirmed Type Aspirin 81 mg PO DAILY 01/08/18 10/20/18 History Biotin 5 mg PO DAILY 01/08/18 10/20/18 History Levothyroxine Sodium [Tirosint] 75 mcg PO DAILY 01/08/18 10/20/18 History Memantine [Namenda] 10 mg PO BID 01/08/18 10/20/18 History PARoxetine [Paxil] 20 mg PO DAILY 01/08/18 10/20/18 History amLODIPine [Norvasc] 5 mg PO DAILY 01/08/18 10/20/18 History Atorvastatin [Lipitor] 40 mg PO HS tab 01/14/18 10/20/18 Rx Clopidogrel [Plavix] 75 mg PO DAILY tab 01/14/18 10/20/18 Rx Meclizine [Antivert] 25 mg PO DAILY PRN tab 01/14/18 10/20/18 Rx Melatonin 3 mg PO HS PRN tablet 01/14/18 10/20/18 Rx Azo Urinary Pain Relief 2 tab PO TID PRN 10/20/18 10/20/18 History OXcarbazepine [Trileptal] 300 mg PO BID 10/20/18 10/20/18 History Allergies Allergy/AdvReac Type Severity Reaction Status Date / Time Penicillins Allergy Rash/Hives Verified 10/20/18 11:33 Sulfa (Sulfonamide AdvReac Itching Verified 10/20/18 11:33 Antibiotics) Surgical - Exam Vital Signs Temp Pulse Resp BP Pulse Ox 98.3 F 77 18 171/81 98 10/20/18 11:01 10/20/18 11:01 10/20/18 11:01 10/20/18 11:01 10/20/18 11:01 Results - Labs 10/21/18 07:59 10/21/18 07:59 Abnormal Lab Results - Last 24 Hours (Table) 10/20/18 10/21/18 10/21/18 Range/Units 16:05 01:00 07:59 Lymphocytes # 0.8 L (1.0-4.8) k/uL Creatinine 0.48 L (0.52-1.04) mg/dL Urine Appearance Cloudy H (Clear) Urine Protein 1+ H (Negative) Urine Ketones 1+ H (Negative) Ur Leukocyte Esterase Small H (Negative) Urine WBC 30 H (0-5) /hpf Urine Bacteria Occasional H (None) /hpf Urine Mucus Occasional H (None) /hpf Microbiology - Last 24 Hours (Table) 10/21/18 01:00 Urine Culture - Preliminary Urine,Clean Catch Diabetes panel 10/21/18 Range/Units 07:59 Sodium 138 (137-145) mmol/L Potassium 4.0 (3.5-5.1) mmol/L Chloride 103 (98-107) mmol/L Carbon Dioxide 26 (22-30) mmol/L BUN 8 (7-17) mg/dL Creatinine 0.48 L (0.52-1.04) mg/dL Glucose 99 (74-99) mg/dL Calcium 9.5 (8.4-10.2) mg/dL Calcium panel 10/21/18 Range/Units 07:59 Calcium 9.5 (8.4-10.2) mg/dL Pituitary panel 10/21/18 Range/Units 07:59 Sodium 138 (137-145) mmol/L Potassium 4.0 (3.5-5.1) mmol/L Chloride 103 (98-107) mmol/L Carbon Dioxide 26 (22-30) mmol/L BUN 8 (7-17) mg/dL Creatinine 0.48 L (0.52-1.04) mg/dL Glucose 99 (74-99) mg/dL Calcium 9.5 (8.4-10.2) mg/dL Adrenal panel 10/21/18 Range/Units 07:59 Sodium 138 (137-145) mmol/L Potassium 4.0 (3.5-5.1) mmol/L Chloride 103 (98-107) mmol/L Carbon Dioxide 26 (22-30) mmol/L BUN 8 (7-17) mg/dL Creatinine 0.48 L (0.52-1.04) mg/dL Glucose 99 (74-99) mg/dL Calcium 9.5 (8.4-10.2) mg/dL
[2018-10-21 15:02] VITALS: BMI 25.8
[2018-10-21] MEDS: ATORVASTATIN 40 MG TAB PO SCH (20:04)
[2018-10-21] MEDS ORDERED: cloNIDine HCL 0.1 MG TAB PO PRN (22:12)
[2018-10-21] MEDS: amLODIPine 10 MG TAB PO SCH (22:23)
[2018-10-21 22:52] VITALS: RESP 16
[2018-10-21] MEDS: hydrALAZINE HCL 20 MG/ML 1 ML VIAL IVP PRN (23:14)
--- NOTE | 2018-10-21 23:59 | PN ---
PROGRESS NOTE DATE OF SERVICE: 10/21/2018 This 83-year-old woman who was admitted with abdominal pain and vomiting and possible acute gastritis is being closely monitored. Patient complains of dizziness, also. A CT scan of the brain was ordered which showed no acute abnormality. Old right frontal lacunar injury was noted. The patient was seen by Surgery and Gastroenterology at this time. Patient is being closely monitored. Past medical history reviewed. The patient had some coffee-ground emesis also. REVIEW OF SYSTEMS: CARDIOVASCULAR SYSTEM: No angina, palpitations. RESPIRATORY SYSTEM: As mentioned earlier. GI: As mentioned earlier. : No dysuria or retention. NERVOUS SYSTEM: No numbness, weakness. CURRENT MEDICATIONS: Reviewed. They include: 1. Norvasc 5 mg p.o. daily. 2. Lipitor 40 mg at bedtime. 3. Rocephin 1 gram daily. 4. Plavix 75 mg p.o. daily. 5. Dilaudid. 6. Lactated Ringer's. 7. Synthroid. 8. Antivert. 9. Melatonin. 10.Namenda. 11.Narcan. 12.Zofran. 13.Trileptal. 14.Protonix. 15.Paxil. PHYSICAL EXAMINATION: Patient is alert, oriented x3. Pulse is 91, blood pressure 183/77. No orthostatic change. Respiration 18, temperature 98 degrees, pulse ox 98% on room air. HEENT: Conjunctivae normal. NECK: No jugular venous distention. CARDIOVASCULAR SYSTEM: S1, S2 muffled. RESPIRATORY SYSTEM: Breath sounds diminished at the bases. Scattered rhonchi and crackles ABDOMEN: Soft, non-tender. No mass palpable. LEGS: No edema. No swelling. NERVOUS SYSTEM: Higher functions as mentioned earlier. Moves all 4 limbs. No focal motor or sensory deficit. LYMPHATICS: No lymph node palpable in neck, axillae or groin. SKIN: No ulcer, rash, bleeding. JOINTS: No active deforming arthropathy. LABS: CBC and CMP within normal limits. UA showed 30 WBCs; cloudy. Leukocyte esterase positive. ASSESSMENT: 1. Abdominal pain, nausea, vomiting; possible acute gastritis. Rule out peptic ulcer disease. 2. History of cerebrovascular accident with right cerebral ischemic stroke. 3. Urinary tract infection, present on admission. 4. Coffee-ground emesis and possible upper gastrointestinal bleed. 5. History of asthma. 6. Hypertension. 7. Hyperlipidemia. 8. History of anxiety. RECOMMENDATIONS AND DISCUSSION: In this 83-year-old woman who presented with multiple complex medical issues, we will monitor the patient closely, continue the current medications, continue with symptomatic treatment. Otherwise, continue with antibiotics. We will monitor the patient closely. Hold antiplatelet agents. Gastroenterology consultation ongoing. The patient might need some testing if continued bleeding is documented. Otherwise, we will follow the patient closely. Antiplatelet agents on hold at this time. Prognosis guarded because of multiple complex medical issues. DVT prophylaxis. Further recommendations to follow. See orders for further details. MMODL / IJN: [id number] /
[2018-10-22] MEDS: SODIUM CHLORIDE 0.9% 1,000 ML IV SCH ×3 (03:35→17:06)
[2018-10-22] MEDS: HYDROmorphone 0.5 MG/0.5 ML SYRINGE IVP PRN ×2 (03:35→20:03)
[2018-10-22] MEDS: hydrALAZINE HCL 20 MG/ML 1 ML VIAL IVP PRN (03:35)
[2018-10-22] MEDS: LEVOTHYROXINE 75 MCG TAB PO SCH ×2 (04:35→09:52)
[2018-10-22] MEDS ORDERED: IV FLUID CONTINUATION 1,000 ML IV ONE (08:37)
[2018-10-22] MEDS ORDERED: PROPOFOL 10 MG/ML 20 ML VIAL IV ONE (08:39)
--- NOTE | 2018-10-22 09:12 | P.OP ---
Date of Procedure: 10/22/18 Preoperative Diagnosis: Hematemesis Postoperative Diagnosis: Mild antral gastritis Procedure(s) Performed: EGD Anesthesia: MAC Surgeon: Lamine Vazquez Pathology: other (Antrum) Condition: stable Disposition: PACU Description of Procedure: The patient's placed on the endoscopy table in the lateral position. He received IV sedation. The gastroscope placed oropharynx passed in the esophagus and stomach. Scope was then placed through the pylorus. The first and second portion of duodenum appeared normal. The scope was then brought back the antrum and this was mildly inflamed. A biopsies performed. There is no evidence of any upper GI bleed. Scope was unretroflexed and remainder stomach appeared normal. The GE junction was at 40 cm. There is no evidence of a hiatal hernia. The distal esophagus and proximal esophagus appeared normal. Scope was withdrawn for patient.
[2018-10-22] MEDS: PANTOPRAZOLE 40 MG/10 ML VIAL IVP SCH ×2 (09:51→20:02)
[2018-10-22] MEDS: OXcarbazepine 150 MG TAB PO SCH ×2 (09:52→20:03)
[2018-10-22] MEDS: amLODIPine 10 MG TAB PO SCH (09:52)
[2018-10-22] MEDS: PARoxetine 20 MG TAB PO SCH (09:52)
[2018-10-22] MEDS: MEMANTINE 10 MG TAB PO SCH ×2 (09:52→20:02)
[2018-10-22] MEDS: LACTATED RINGERS 1,000 ML IV SCH (09:53)
[2018-10-22 11:37] LABS: Anion Gap 9 mmol/L; Blood Urea Nitrogen 10 mg/dL (7-17); Calcium 9.1 mg/dL (8.4-10.2); Carbon Dioxide 25 mmol/L (22-30); Chloride 102 mmol/L (98-107); Glucose 107 mg/dL (74-99); Potassium 3.9 mmol/L (3.5-5.1); Sodium 136 mmol/L (137-145)
[2018-10-22 11:41] LABS: Basophils % (A) 0 %; Eosinophils % (A) 1 %; HCT 37.8 % (34.0-46.0); HGB 12.2 gm/dL (11.4-16.0); Lymphocytes # (A) 0.8 k/uL (1.0-4.8); Lymphocytes % (A) 10 %; MCH 27.9 pg (25.0-35.0); MCHC 32.3 g/dL (31.0-37.0); MCV 86.2 fL (80.0-100.0); Monocytes # (A) 0.5 k/uL (0-1.0); Monocytes % (A) 6 %; Neutrophils % (A) 83 %; Platelet Count 284 k/uL (150-450); RBC 4.38 m/uL (3.80-5.40); RDW 13.7 % (11.5-15.5); WBC 8.5 k/uL (3.8-10.6)
--- NOTE | 2018-10-22 19:36 | PN ---
PROGRESS NOTE DATE OF SERVICE: 10/22/2018 This 83-year-old woman who was admitted with abdominal pain, nausea, vomiting, possible acute gastritis, also had an EGD by Dr. Vazquez. EGD showed mild antral gastritis. Patient is being closely monitored. Patient is able to tolerate p.o. diet better. Biopsies are pending. No chest pain. No palpitations. No fever. On exam, alert and oriented x2. Pulse 87, blood pressure 137/68, respirations 16, temperature 98.2, pulse ox 95% on room air. HEENT: Conjunctivae normal. NECK: No jugular venous distention. CARDIOVASCULAR SYSTEM: S1, S2 muffled. RESPIRATORY SYSTEM: Breath sounds diminished at the bases. A few scattered rhonchi and crackles. ABDOMEN: Soft, non-tender. NERVOUS SYSTEM: No focal deficit. LABS: CBC within normal limits. Sodium 136, potassium 3.9. ASSESSMENT: 1. Abdominal pain, nausea, vomiting; possible acute gastritis, status post EGD. 2. History of cerebrovascular accident, transient ischemic attack. 3. Urinary tract infection, present on admission. 4. Coffee-ground emesis with possible upper gastrointestinal bleed, present on admission. 5. History of asthma. 6. Hypertension. 7. Hyperlipidemia. 8. History of anxiety. RECOMMENDATIONS AND DISCUSSION: I recommend to continue current medications, continue with the monitoring, symptomatic treatment. Will increase ambulation. PT/OT evaluation. If PT/OT evaluation clears the patient, the patient might be able to go home. Further recommendations to follow. MMODL / IJN: [id number] /
[2018-10-22] MEDS: ATORVASTATIN 40 MG TAB PO SCH (20:02)
[2018-10-23 05:14] VITALS: BP 152/70; PULSE 71; TEMP 98.5
[2018-10-23] MEDS: LEVOTHYROXINE 75 MCG TAB PO SCH (05:44)
[2018-10-23] MEDS: SODIUM CHLORIDE 0.9% 1,000 ML IV SCH (08:41)
[2018-10-23] MEDS: LACTATED RINGERS 1,000 ML IV SCH (08:45)
[2018-10-23] MEDS: PANTOPRAZOLE 40 MG/10 ML VIAL IVP SCH (08:50)
[2018-10-23] MEDS: MEMANTINE 10 MG TAB PO SCH (08:50)
[2018-10-23] MEDS: OXcarbazepine 150 MG TAB PO SCH (08:51)
[2018-10-23] MEDS: PARoxetine 20 MG TAB PO SCH (08:51)
[2018-10-23] MEDS: amLODIPine 10 MG TAB PO SCH (08:51)
[2018-10-23 10:03] LABS: Basophils % (A) 0 %; Eosinophils # (A) 0.1 k/uL (0-0.7); Eosinophils % (A) 2 %; HCT 38.7 % (34.0-46.0); HGB 11.8 gm/dL (11.4-16.0); Lymphocytes # (A) 1.1 k/uL (1.0-4.8); Lymphocytes % (A) 16 %; MCH 27.1 pg (25.0-35.0); MCHC 30.6 g/dL (31.0-37.0); MCV 88.7 fL (80.0-100.0); Mean Platelet Volume 6.6; Monocytes # (A) 0.4 k/uL (0-1.0); Monocytes % (A) 5 %; Neutrophils # (A) 5.5 k/uL (1.3-7.7); Neutrophils % (A) 76 %; Platelet Count 273 k/uL (150-450); RBC 4.36 m/uL (3.80-5.40); RDW 13.2 % (11.5-15.5); WBC 7.2 k/uL (3.8-10.6)
[2018-10-23 10:22] LABS: Blood Urea Nitrogen 7 mg/dL (7-17); Calcium 9.2 mg/dL (8.4-10.2); Chloride 102 mmol/L (98-107); Glucose 121 mg/dL (74-99); Potassium 3.4 mmol/L (3.5-5.1); Sodium 138 mmol/L (137-145)
[2018-10-23 11:03] LABS: Anion Gap 10 mmol/L; Carbon Dioxide 26 mmol/L (22-30)
--- NOTE | 2018-10-23 13:28 | P.PN ---
Subjective Progress Note Date: 10/23/18 CHIEF COMPLAINT: Abdominal pain HISTORY OF PRESENT ILLNESS: 83-year-old female who underwent EGD yesterday revealing mild gastritis. Patient denies any further episodes of emesis. Denies nausea. Tolerating clear liquid diet. PHYSICAL EXAM: VITAL SIGNS: Reviewed. GENERAL: Well-developed in no acute distress. HEENT: No sclera icterus. Extraocular movements grossly intact. Moist buccal mucosa. Head is atraumatic, normocephalic. ABDOMEN: Soft. Nondistended. Nontender. NEUROLOGIC: Alert and oriented. Cranial nerves II through XII grossly intact. ASSESSMENT: 1. Nausea with coffee ground emesis x 4 days PLAN: Advance diet as tolerated. Patient is cleared for discharge from a surgical standpoint. Nurse practitioner note has been reviewed by physician. Signing provider agrees with the documented findings, assessment, and plan of care. Objective - Vital Signs Vital signs: Vital Signs Temp 98.5 F 10/23/18 05:00 Pulse 71 10/23/18 05:00 Resp 16 10/23/18 05:00 BP 152/70 10/23/18 05:00 Pulse Ox 95 10/23/18 05:00 Intake & Output 10/22/18 10/23/18 10/23/18 18:59 06:59 18:59 Intake Total 700 725 Balance 700 725 Intake: IV 100 Intake, IV Titration 600 525 Amount Sodium Chloride 0.9% 1, 550 525 000 ml @ 75 mls/hr IV . [id number] SAUMYA Rx#:[id number] cefTRIAXone 1 gm In 50 Sodium Chloride 0.9% 50 ml @ 100 mls/hr IVPB Q24HR SAUMYA Rx#:[id number] Oral 200 Other: Voiding Method Toilet Toilet Incontinent Incontinent # Voids 4 1 1 - Labs CBC & Chem 7: 10/23/18 09:29 10/23/18 09:29 Labs: Abnormal Lab Results - Last 24 Hours (Table) 10/23/18 10/23/18 Range/Units 09:29 09:29 MCHC 30.6 L (31.0-37.0) g/dL Potassium 3.4 L (3.5-5.1) mmol/L Creatinine 0.47 L (0.52-1.04) mg/dL Glucose 121 H (74-99) mg/dL Microbiology - Last 24 Hours (Table) 10/20/18 22:14 Blood Culture - Preliminary Blood No Growth after 48 hours 10/21/18 01:00 Urine Culture - Preliminary Urine,Clean Catch Gram Neg Bacilli
--- NOTE | 2018-10-23 22:58 | DS ---
DISCHARGE SUMMARY DATE OF SERVICE: 10/23/2018. FINAL DIAGNOSES: 1. Abdominal pain, nausea, vomiting, possible acute gastritis status post EGD. 2. History of cerebrovascular accident, transient ischemic attack. 3. History of urinary tract infection present on admission. 4. Coffee-grounds emesis with possible upper gastrointestinal bleeding, present on admission. 5. History of asthma. 6. Hypertension. 7. Hyperlipidemia. 8. History of anxiety disorder. Patient being discharged in stable condition with guarded prognosis. HISTORY OF PRESENT ILLNESS: This 83-year-old woman with past medical history of multiple medical problems including coffee ground emesis and multiple other medical issues. EGD showed only gastritis. Patient was able to tolerate food. Final hemoglobin was 11.8, potassium 3.[address] Vazquez performed EGD showed only gastritis treated symptomatically. No active bleeding was noted in the hospital. On exam, vital signs stable. Cardio system: S1, S2. Abdomen soft. Nervous system: Mild diffuse weakness. The patient will be discharged home in stable condition with guarded prognosis. DISCHARGE ADVICE AND MEDICATION: 1. Discharge diet is cardiac diet. 2. Follow up with Dr. Lester in 2-3 days. 3. Follow up with Dr. Vazquez as recommended. DISCHARGE MEDICATIONS: 1. Aspirin. Hold for now and restart in 1 week. 2. Azo 2 tablets t.i.d. p.r.n. 3. Biotin 5 mg p.o. daily. 4. Namenda 10 mg p.o. b.i.d. 5. Norvasc 5 mg p.o. daily. 6. Paxil 20 mg p.o. daily. 7. Levothyroxine 75 mcg p.o. daily. 8. Trileptal 300 mg p.o. b.i.d. 9. Antivert 25 mg p.o. daily p.r.n. 10.Ceftin 500 mg p.o. daily for 3 days. 11.Lipitor 40 mg q.h.s. 12.Melatonin 3 mg q.h.s. 13.Plavix 75 mg p.o. daily. Hold now and restart in 1 week. 14.Protonix 40 mg p.o. daily. MMODL / IJN: [id number] /
== END 2018-10-23 14:20 | disposition home or self-care (01) | DRG 378 ==
LOC: EC 10:16 → 3NMEDONC 13:09 → OBSVTOIN 10-22 15:35 → 3NMEDONC 10-22 22:18
PROVIDERS: ADMIT Hospitalist; ATTEND Hospitalist
PROC: 0DJ08ZZ Inspection of Upper Intestinal Tract, Via Natural or Artificial Opening Endoscopic (ICD-10-PCS; principal; 2018-10-22 08:30)
DX: K92.2 Gastrointestinal hemorrhage, unspecified (principal); N39.0 Urinary tract infection, site not specified; K29.00 Acute gastritis without bleeding; E03.9 Hypothyroidism, unspecified; E78.5 Hyperlipidemia, unspecified; I10 Essential (primary) hypertension; J45.909 Unspecified asthma, uncomplicated; K21.9 Gastro-esophageal reflux disease without esophagitis; K57.30 Diverticulosis of large intestine without perforation or abscess without bleeding; F41.9 Anxiety disorder, unspecified; G43.909 Migraine, unspecified, not intractable, without status migrainosus; R53.1 Weakness; H54.7 Unspecified visual loss; H91.90 Unspecified hearing loss, unspecified ear; Z79.02 Long term (current) use of antithrombotics/antiplatelets; Z79.82 Long term (current) use of aspirin; Z79.890 Hormone replacement therapy; Z79.899 Other long term (current) drug therapy; Z86.73 Personal history of transient ischemic attack (TIA), and cerebral infarction without residual deficits; Z87.440 Personal history of urinary (tract) infections; Z87.891 Personal history of nicotine dependence; Z90.710 Acquired absence of both cervix and uterus; Z88.0 Allergy status to penicillin; Z88.2 Allergy status to sulfonamides; Z90.49 Acquired absence of other specified parts of digestive tract; Z98.51 Tubal ligation status; Z98.42 Cataract extraction status, left eye; Z98.41 Cataract extraction status, right eye; Z96.1 Presence of intraocular lens; Z82.0 Family history of epilepsy and other diseases of the nervous system; Z82.49 Family history of ischemic heart disease and other diseases of the circulatory system; Z82.3 Family history of stroke; Z83.511 Family history of glaucoma
CPT/HCPCS: 36415; 43239; 70450; 71046; 74018; 80048; 80053; 81001; 82272; 82550; 83605; 84484; 85025; 85610; 85730; 86850; 86900; 86901; 87040; 87086; 87502; 88305; 93005; 96361; 96374; 99284

== ENCOUNTER 2019-06-17 05:34 | Emergency (ER) | payer MEDICARE ==
[2019-06-17] MEDS ORDERED: DIPH,PERTUS(ACELL)TETVAC-LF 0.5 ML VIAL IM ONE (05:37)
[2019-06-17 05:43] VITALS: TEMP 97.7
[2019-06-17 05:56] LABS: Basophils % (A) 1 %; Eosinophils # (A) 0.2 k/uL (0-0.7); Eosinophils % (A) 3 %; HGB 13.4 gm/dL (11.4-16.0); Lymphocytes % (A) 17 %; MCH 29.7 pg (25.0-35.0); MCHC 34.4 g/dL (31.0-37.0); MCV 86.6 fL (80.0-100.0); Mean Platelet Volume 5.7; Monocytes # (A) 0.3 k/uL (0-1.0); Monocytes % (A) 5 %; Neutrophils # (A) 4.2 k/uL (1.3-7.7); Neutrophils % (A) 74 %; Platelet Count 292 k/uL (150-450); RBC 4.51 m/uL (3.80-5.40); RDW 12.6 % (11.5-15.5); WBC 5.7 k/uL (3.8-10.6)
--- NOTE | 2019-06-17 06:06 | ED ---
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 Patient is brought to the emergency department today by EMS for evaluation of laceration to the scalp. Patient stood from bed to get up to use the restroom when she tripped and fell striking the left side of her scalp on the metal hand rail on her bed. She is noted to be bleeding at which time her called 911. EMS arrived on scene, per family at bedside the patient was at her normal mental status. Patient was able to stand and ambulate. Dressing was applied to the laceration on her head to transfer the hospital for further evaluation. Patient is on Plavix. Patient is able to answer yes no questions appropriately. She denies any chest pain palpitations or lightheadedness. She reports the fall was due to trip. - Related Data Home Medications Medication Instructions Recorded Confirmed Aspirin 81 mg PO DAILY 01/08/18 10/20/18 Biotin 5 mg PO DAILY 01/08/18 10/20/18 Levothyroxine Sodium [Tirosint] 75 mcg PO DAILY 01/08/18 10/20/18 Memantine [Namenda] 10 mg PO BID 01/08/18 10/20/18 PARoxetine [Paxil] 20 mg PO DAILY 01/08/18 10/20/18 amLODIPine [Norvasc] 5 mg PO DAILY 01/08/18 10/20/18 Azo Urinary Pain Relief 2 tab PO TID PRN 10/20/18 10/20/18 OXcarbazepine [Trileptal] 300 mg PO BID 10/20/18 10/20/18 Previous Rx's Medication Instructions Recorded Atorvastatin [Lipitor] 40 mg PO HS tab 01/14/18 Meclizine [Antivert] 25 mg PO DAILY PRN tab 01/14/18 Melatonin 3 mg PO HS PRN tablet 01/14/18 Cefuroxime Axetil [Ceftin] 500 mg PO BID 3 Days #6 tab 10/23/18 Clopidogrel [Plavix] 75 mg PO DAILY #0 tab 10/23/18 Pantoprazole Sodium [Protonix] 40 mg PO DAILY #30 tablet. 10/23/18 Allergies Allergy/AdvReac Type Severity Reaction Status Date / Time Penicillins Allergy Rash/Hives Verified 06/17/19 06:21 Sulfa (Sulfonamide AdvReac Itching Verified 06/17/19 06:21 Antibiotics) Review of Systems ROS Statement: Those systems with pertinent positive or pertinent negative responses have been documented in the HPI. ROS Other: All systems not noted in ROS Statement are negative. Past Medical History Past Medical History: Asthma, Eye Disorder, GERD/Reflux, Hyperlipidemia, Hypertension, Neurologic Disorder, Thyroid Disorder Additional Past Medical History / Comment(s): TRIGEMINAL NEURALGIA, MIGRAINES, VERTIGO, PAST SMALL BOWEL OBSTRUCTIONS, DIVERTICULAR DISEASE, HYPOTHYROID, BILATERAL EYE ASTIGMATISM, UTIS, ANEMIA, SINUS PROBLEMS History of Any Multi-Drug Resistant Organisms: None Reported Past Surgical History: Bowel Resection, Breast Surgery, Hysterectomy, Tubal Ligation Additional Past Surgical History / Comment(s): EXPLORATORY LAP/LYSIS OF ADHE SIONS-2 BOWEL SURGERIES, COLONOSCOPY, BILATERAL CATARACT REMOVAL/LENS IMPLANTS, BRAIN-GAMMA RAY KNIFE SURGERY AT [facility] FOR TRIGEMINAL NEURALGIA, SOFIE BENIGN BREAST BX Past Anesthesia/Blood Transfusion Reactions: Motion Sickness Additional Past Anesthesia/Blood Transfusion Reaction / Comment(s): HX OF VERTIGO. PT HAS RECEIVED BLOOD INTHE PAST WITHOUT REACTION. Past Psychological History: Anxiety Smoking Status: Former smoker Past Alcohol Use History: None Reported Past Drug Use History: None Reported - Past Family History Son(s) Family Medical History: Cancer, Neurologic Disorder Additional Family Medical History / Comment(s): ms Father Family Medical History: Hypertension, Myocardial Infarction ([place]) Additional Family Medical History / Comment(s): enlarged heart Mother Family Medical History: Diabetes Mellitus Additional Family Medical History / Comment(s): MOTHER LIVED TO BE 98YRS OLD. Sister(s) Family Medical History: CVA/TIA Additional Family Medical History / Comment(s): Sister had TIAs Brother(s) Family Medical History: Eye Disorder Additional Family Medical History / Comment(s): glaucoma General Exam - General Exam Comments Initial Comments: Physical Exam GENERAL: Patient is well-developed and well-nourished. Patient is nontoxic and well-hydrated and is in no distress. HENT: Abrasion on the left frontal scalp, no laceration, no active bleeding EYES: PERRL, EOMI PULMONARY: Unlabored respirations. No audible rales rhonchi or wheezing was noted. CARDIOVASCULAR: RRR ABDOMEN: Soft and nontender with normal bowel sounds. SKIN: Abrasion on scalp as noted before : Deferred NEUROLOGIC: Alert Answers yes and no questions appropriately Significant difficulty with word finding secondary to previous stroke MUSCULOSKELETAL: Normal extremities with adequate strength and full range of motion. No lower extremity swelling or edema. No calf tenderness. PSYCHIATRIC: Normal psychiatric evaluation. Course Vital Signs 06/17/19 06/17/19 05:37 06:42 Temperature 97.7 F Pulse Rate 77 73 Respiratory 17 18 Rate Blood Pressure 183/84 148/66 O2 Sat by Pulse 98 98 Oximetry Medical Decision Making - Medical Decision Making The patient was seen and evaluated upon arrival to the emergency department Patient awake alert oriented at her baseline per family Patient has an abrasion of the left scalp with no active bleeding Patient was noted to be hypertensive however has a history of such Labs and imaging were obtained Labs with some hyponatremia results were discussed with the patient and family left leg, thigh bedside confirms the patient has primarily coffee and toast throughout the day and a small meal for dinner discussed adding additional foods to her diet and make sure she has a balanced diet. Advised that she follow with her primary care doctor for repeat labs. - Lab Data Result diagrams: 06/17/19 05:48 06/17/19 05:48 Lab Results 06/17/19 06/17/19 06/17/19 Range/Units 05:48 05:48 05:48 WBC 5.7 (3.8-10.6) k/uL RBC 4.51 (3.80-5.40) m/uL Hgb 13.4 (11.4-16.0) gm/dL Hct 39.0 (34.0-46.0) % MCV 86.6 (80.0-100.0) fL MCH 29.7 (25.0-35.0) pg MCHC 34.4 (31.0-37.0) g/dL RDW 12.6 (11.5-15.5) % Plt Count 292 (150-450) k/uL Neutrophils % 74 % Lymphocytes % 17 % Monocytes % 5 % Eosinophils % 3 % Basophils % 1 % Neutrophils # 4.2 (1.3-7.7) k/uL Lymphocytes # 1.0 (1.0-4.8) k/uL Monocytes # 0.3 (0-1.0) k/uL Eosinophils # 0.2 (0-0.7) k/uL Basophils # 0.0 (0-0.2) k/uL PT 9.6 (9.0-12.0) sec INR 0.9 (<1.2) APTT 23.0 (22.0-30.0) sec Sodium 131 L (137-145) mmol/L Potassium 3.8 (3.5-5.1) mmol/L Chloride 99 (98-107) mmol/L Carbon Dioxide 25 (22-30) mmol/L Anion Gap 7 mmol/L BUN 12 (7-17) mg/dL Creatinine 0.59 (0.52-1.04) mg/dL Est GFR (CKD-EPI)AfAm >90 (>60 ml/min/1.73 sqM) Est GFR (CKD-EPI)NonAf 86 (>60 ml/min/1.73 sqM) Glucose 112 H (74-99) mg/dL Calcium 9.7 (8.4-10.2) mg/dL Total Bilirubin 0.3 (0.2-1.3) mg/dL AST 20 (14-36) U/L ALT 19 (9-52) U/L Alkaline Phosphatase 96 (38-126) U/L Total Protein 8.2 (6.3-8.2) g/dL Albumin 4.6 (3.5-5.0) g/dL Urine Color Urine Appearance (Clear) Urine pH (5.0-8.0) Ur Specific Sayre (1.001-1.035) Urine Protein (Negative) Urine Glucose (UA) (Negative) Urine Ketones (Negative) Urine Blood (Negative) Urine Nitrite (Negative) Urine Bilirubin (Negative) Urine Urobilinogen (<2.0) mg/dL Ur Leukocyte Esterase (Negative) Serum Alcohol <10 mg/dL Blood Type Blood Type Recheck Bld Type Recheck Status Antibody Screen Spec Expiration Date 06/17/19 06/17/19 Range/Units 05:48 06:41 WBC (3.8-10.6) k/uL RBC (3.80-5.40) m/uL Hgb (11.4-16.0) gm/dL Hct (34.0-46.0) % MCV (80.0-100.0) fL MCH (25.0-35.0) pg MCHC (31.0-37.0) g/dL RDW (11.5-15.5) % Plt Count (150-450) k/uL Neutrophils % % Lymphocytes % % Monocytes % % Eosinophils % % Basophils % % Neutrophils # (1.3-7.7) k/uL Lymphocytes # (1.0-4.8) k/uL Monocytes # (0-1.0) k/uL Eosinophils # (0-0.7) k/uL Basophils # (0-0.2) k/uL PT (9.0-12.0) sec INR (<1.2) APTT (22.0-30.0) sec Sodium (137-145) mmol/L Potassium (3.5-5.1) mmol/L Chloride (98-107) mmol/L Carbon Dioxide (22-30) mmol/L Anion Gap mmol/L BUN (7-17) mg/dL Creatinine (0.52-1.04) mg/dL Est GFR (CKD-EPI)AfAm (>60 ml/min/1.73 sqM) Est GFR (CKD-EPI)NonAf (>60 ml/min/1.73 sqM) Glucose (74-99) mg/dL Calcium (8.4-10.2) mg/dL Total Bilirubin (0.2-1.3) mg/dL AST (14-36) U/L ALT (9-52) U/L Alkaline Phosphatase (38-126) U/L Total Protein (6.3-8.2) g/dL Albumin (3.5-5.0) g/dL Urine Color Light Yellow Urine Appearance Clear (Clear) Urine pH 7.0 (5.0-8.0) Ur Specific Sayre 1.008 (1.001-1.035) Urine Protein Negative (Negative) Urine Glucose (UA) Negative (Negative) Urine Ketones 1+ H (Negative) Urine Blood Negative (Negative) Urine Nitrite Negative (Negative) Urine Bilirubin Negative (Negative) Urine Urobilinogen <2.0 (<2.0) mg/dL Ur Leukocyte Esterase Negative (Negative) Serum Alcohol mg/dL Blood Type A Positive Blood Type Recheck A Pos Bld Type Recheck Status No Antibody Screen NEGATIVE Spec Expiration Date 06/20/2019 - 2348 - EKG Data -: EKG Interpreted by Me EKG Comments: EKG was obtained due to complaint of trauma, EKG obtained at 5:40 AM, rate is 73 rhythm sinus there is normal axis there are normal intervals, VA 162, QRS 82, QTc 442. There are no acute ST elevations or depressions there is no evidence of acute ischemia or infarction. Disposition Clinical Impression: Fall, Abrasion of scalp, initial encounter, Hyponatremia Disposition: HOME SELF-CARE Condition: Stable Instructions (If sedation given, give patient instructions): Fall Prevention for Older Adults (ED), Abrasion (ED) Additional Instructions: Your sodium (salt) was slightly low today, make sure you are eating a balanced diet follow up with your primary care doctor for repeat labs return to the ER for any worsening weakness, confusion or development of any new or concerning symptoms Is patient prescribed a controlled substance at d/c from ED?: No Referrals: Barbra Lester III, MD [Primary Care Provider] - 1-2 days
[2019-06-17 06:08] LABS: ALT 19 U/L (9-52); AST 20 U/L (14-36); African American GFR (CKD) >90 (>60 ml/min/1.73 sqM); Albumin 4.6 g/dL (3.5-5.0); Alcohol <10 mg/dL; Alkaline Phosphatase 96 U/L (38-126); Anion Gap 7 mmol/L; Blood Urea Nitrogen 12 mg/dL (7-17); Calcium 9.7 mg/dL (8.4-10.2); Carbon Dioxide 25 mmol/L (22-30); Chloride 99 mmol/L (98-107); Glucose 112 mg/dL (74-99); Non-African American GFR(CKD) 86 (>60 ml/min/1.73 sqM); Potassium 3.8 mmol/L (3.5-5.1); Sodium 131 mmol/L (137-145); Total Bilirubin 0.3 mg/dL (0.2-1.3); Total Protein 8.2 g/dL (6.3-8.2)
[2019-06-17 06:09] LABS: INR 0.9 (<1.2); Prothrombin Time 9.6 sec (9.0-12.0)
--- NOTE | 2019-06-17 06:14 | XR ---
EXAMINATION TYPE: XR chest 1V portable DATE OF EXAM: 06/17/2019 COMPARISON: 10/20/2018 HISTORY: Pain TECHNIQUE: Single frontal view of the chest is obtained. FINDINGS: Heart and mediastinum are normal. Lungs are clear. Diaphragm is normal. Bony thorax appear s normal. IMPRESSION: Normal chest. No change.
--- NOTE | 2019-06-17 06:16 | XR ---
EXAMINATION TYPE: XR pelvis AP view DATE OF EXAM: 06/17/2019 COMPARISON: 10/20/2018 HISTORY: Pain TECHNIQUE: Single view FINDINGS: Pelvic ring is intact. Proximal femurs and hip joints are intact. There is no sign of hip d ysplasia. Sacroiliac joints appear normal. IMPRESSION: Negative exam. No fracture. No change.
--- NOTE | 2019-06-17 06:17 | CT ---
EXAMINATION TYPE: CT brain cspine wo con DATE OF EXAM: 06/17/2019 COMPARISON: CT brain 10/21/2018 HISTORY: fall CT DLP: 1304.3 mGycm Automated exposure control for dose reduction was used. Findings There is cerebral cortical atrophy. There is no mass effect nor midline shift. There is no sign of in tracranial hemorrhage. The calvarium is intact. Cervical vertebra have normal alignment. There is some degenerative mild disc space narrowing. [employer] ior elements are intact. There is mild hypertrophic cervical facet arthropathy. The skull base is int act. IMPRESSION: Spondylotic changes in the cervical spine. No fracture seen. Cerebral atrophy and chronic small vessel ischemia. No change compared to old exam. No acute intracra nial abnormality.
[2019-06-17 06:43] VITALS: BP 148/66; PULSE 73; RESP 18
[2019-06-17 06:46] LABS: Appearance,Urine Clear (Clear); Bilirubin,Urine Negative (Negative); Blood,Urine Negative (Negative); Color,Urine Light Yellow; Glucose,Urine (UA) Negative (Negative); Ketones,Urine 1+ (Negative); Leukocyte Esterase,Urine Negative (Negative); Nitrite,Urine Negative (Negative); Protein,Urine Negative (Negative); Specific Gravity,Urine 1.008 (1.001-1.035); Urobilinogen,Urine <2.0 mg/dL (<2.0)
== END 2019-06-17 07:19 | disposition home or self-care (01) ==
LOC: EC 05:34
DX: S00.01XA Abrasion of scalp, initial encounter (principal); E87.1 Hypo-osmolality and hyponatremia; I10 Essential (primary) hypertension; E03.9 Hypothyroidism, unspecified; F41.9 Anxiety disorder, unspecified; F03.90 Unspecified dementia, unspecified severity, without behavioral disturbance, psychotic disturbance, mood disturbance, and anxiety; Z23 Encounter for immunization; Z79.02 Long term (current) use of antithrombotics/antiplatelets; Z79.82 Long term (current) use of aspirin; Z79.890 Hormone replacement therapy; Z79.899 Other long term (current) drug therapy; Z88.0 Allergy status to penicillin; Z88.2 Allergy status to sulfonamides; Z87.891 Personal history of nicotine dependence; W01.198A Fall on same level from slipping, tripping and stumbling with subsequent striking against other object, initial encounter
CPT/HCPCS: 99284 ×2; 90471 ×2; 36415; 93005; 86900; 86901; 80053; 85025; 85610; 85730; 86850; 81003; 72170; 71045; 72125; 70450; 90715; G0480; 80320

== ENCOUNTER → 2020-01-06 | Outpatient (CLI) | payer MEDICARE ==
--- NOTE | 2020-01-07 07:59 | MM ---
Reason for exam: clinical finding. Last mammogram was performed 1 year and 3 months ago. History: Patient is postmenopausal. Benign right mammotome panel of the right breast, September 19, 2011. Benign stereotactic core biopsy of the left breast, April 27, 2004. Taking estrogen for 20 years beginning at age 56. Indicated problem(s): palpable abnormality, skin thickening or retraction, lump or thickening, and pain in the left breast. Physical Findings: Nurse Summary: 5cm nodule in the left breast (nurse dw). MG 3D Diag Mammo W/Cad SOFIE Bilateral CC and MLO view(s) were taken. Prior study comparison: October 17, 2018, bilateral MG 3d screening mammo w/cad. April 02, 2012, right diagnostic mammogram w/CAD. The breast tissue is heterogeneously dense. This may lower the sensitivity of mammography. Marked distortion left breast large mass partially imaged. Ultrasound is recommended. These results were verbally communicated with the patient and result sheet given to the patient on 01/06/20. ASSESSMENT: Incomplete: need additional imaging evaluation, BI-RAD 0 RECOMMENDATION: Ultrasound of the left breast. Manage patient on a clinical basis.
--- NOTE | 2020-01-07 08:02 | USB ---
Reason for exam: additional evaluation requested from abnormal screening. History: Patient is postmenopausal. Benign right mammotome panel of the right breast, September 19, 2011. Benign stereotactic core biopsy of the left breast, April 27, 2004. Taking estrogen for 20 years beginning at age 56. US Breast LT Left complete breast ultrasound includes all four quadrants, the retroareolar region and axilla. Finding demonstrates a 3 x 4 x 3mm cystic lesion at 11 o'clock and a 38 x 22 x 53mm hypoechoic, vascular lesion at the posterior nipple. These results were verbally communicated with the patient and result sheet given to the patient on 01/06/20. ASSESSMENT: Highly suggestive of malignancy, BI-RAD 5 RECOMMENDATION: Ultrasound core biopsy of the left breast. Called Dr. Geena Spicer's office with mammographic findings and has scheduled an appointment for the patient for 02/03/20 at 4:[address] Spicer. Biopsy scheduled for 01/21/20 at 10:30. PRELIMINARY REPORT CALLED AND FAXED TO DR. SPICER ON 01/07/20.
== END | disposition home or self-care (01) ==
LOC: RADMAMWWP 13:37
PROVIDERS: ATTEND Family Medicine
DX: R92.8 Other abnormal and inconclusive findings on diagnostic imaging of breast (principal); N64.53 Retraction of nipple; N64.59 Other signs and symptoms in breast
CPT/HCPCS: 77066; 76641; G0279; 77062

== ENCOUNTER → 2020-01-21 | Day surgery (SDC) | payer MEDICARE ==
--- NOTE | 2020-01-21 12:18 | USB ---
EXAMINATION TYPE: US biopsy breast VAD LT, MG post biopsy diagnostic mammo LT wo CAD DATE OF EXAM: 01/21/2020 CLINICAL HISTORY: 84-year-old female R92.8 ABN MAMMO. TECHNIQUE: Ultrasound guided core biopsy of the left breast. COMPARISON: 01/06/2020 FINDINGS: The procedure of ultrasound guided core biopsy was explained to the patient. Benefits, alternatives, and risks were discussed. An informed consent was then obtained. We note that the patient has dementia and has no assigned guardian at this time. The patient's sister, Desiree, helped with consent and timeout. The patient was placed in supine positioning for imaging and for the procedure. The overlying skin was prepped and draped in usual sterile fashion. Lidocaine was used as anesthetic into the skin followed by lidocaine/epinephrine into the subcutaneous tissue up to area of concern in the subareolar left breast. Under ultrasound guidance, a 13-gauge vacuum-assisted mammotome Elite biopsy gun was used to obtain 7 core samples. Following this, a coil clip was left in lesion. The patient tolerated the procedure well without any immediate complication. The patient was kept in the radiology department for short stay after the procedure and then discharged home in stable condition. Post biopsy mammogram shows coil clip centrally and posteriorly on the lateral view. Unable to visualize on the CC view. IMPRESSION: Successful, uncomplicated ultrasound guided core biopsy of large, BI-RADS 5 subareolar mass, left breast. Full pathology results to follow. Pathology Results: Malignant LEFT BREAST, ULTRASOUND GUIDED CORE BIOPSY: Invasive moderately differentiated ductal carcinoma (Grade 2). See Surgical Pathology Cancer Case Summary and Comment. Recommendation Surgical consult of the left breast. BRADLY
[2020-01-22 01:01] VITALS: BP 135/75; PULSE 78; RESP 16; TEMP 97.9
== END ==
LOC: RADUSWWP 09:31
PROVIDERS: ATTEND Surgery
DX: C50.912 Malignant neoplasm of unspecified site of left female breast (principal); Z17.0 Estrogen receptor positive status [ER+]
CPT/HCPCS: 88305; 88342; 88341; 77065; 19083; A4648; J2001